=== PATIENT | male | born 1955 | race African-American/Black ===

== ENCOUNTER 2021-09-13 11:08 | Inpatient (IN) ==
[2021-09-13] MEDS ORDERED: HYDROmorphone 1 MG/1 ML SYRINGE IV STA ×3 (13:09→14:42)
[2021-09-13] MEDS ORDERED: SODIUM CHLORIDE 0.9% 1,000 ML IV STA (13:09)
[2021-09-13] MEDS ORDERED: ONDANSETRON 4 MG/2 ML VIAL IV STA (13:09)
[2021-09-13 13:18] LABS: Basophils % 0.4 % (0.0-0.8); Eosinophils % 0.2 % (0.00-10.9); Hemoglobin 10.9 GM/DL (14.0-18.0); Immature Granulocytes % 1.9 %; Immature Granulocytes Absolute 0.09 #; Lymphocytes # 0.9 10*3/uL (1.4-4.0); Lymphocytes % 19.8 % (21.2-54.2); Mean Corpuscular HGB Conc 31.1 GM/DL (32-36); Mean Corpuscular Volume 82.9 FL (87-102); Mean Platelet Volume 8.9 FL (9.6-12.0); Monocytes # 0.4 10*3/uL (0.11-0.8); Monocytes % 7.5 % (1.7-12.7); Neutrophils % 70.2 % (38.7-73.9); Platelet Count 409 T/CUMM (130-400); Red Blood Count 4.22 MC/CUMM (3.8-5.5); Red Cell Distribution Width 18.7 % (9.3-17.3); White Blood Count 4.7 T/CUMM (4-12)
[2021-09-13 13:31] LABS: Alanine Aminotransferase 13 U/L (16-61); Alkaline Phosphatase 279 U/L (45-117); Aspartate Amino Transferase 17 U/L (0-37); Bilirubin,Total < 0.39 MG/DL (0.20-1.00); Blood Urea Nitrogen 13 MG/DL (7-18); Calcium 9.9 MG/DL (8.5-10.1); Carbon Dioxide 25 MMOL/L (21-32); Chloride 109 MMOL/L (98-107); Glucose 140 MG/DL (74-106); Osmolality,Calculated 282.3 MOS/KG (273-304); Sodium 141 MMOL/L (136-145); Total Protein 8.5 G/DL (6.4-8.2)
[2021-09-13 13:46] LABS: Glucose,Urine (UA) 250 mg/dL (Negative); Mucus,Urine Occasional /LPF (Occasional); Protein,Urine 30 mg/dL (Negative); RBC,Urine 9 /HPF (0-4); Urine Appearance Clear (Clear); Urine Color Yellow (Yellow); Urine Specific Gravity 1.025 (1.001-1.035)
[2021-09-13 13:47] LABS: Bilirubin,Urine Negative (Negative); Blood, Urine Moderate mg/dL (Negative); Ketones,Urine Negative (Negative); Nitrite,Urine Negative (Negative); Urine Urobilinogen 0.2 eU/dL (<2.0)
[2021-09-13] MEDS ORDERED: cefTRIAXone 1,000 MG in SODIUM CHLORIDE 0.9% 100 ML IV STA (15:48)
[2021-09-13] MEDS ORDERED: ZALEPLON 5 MG CAPSULE PO PRN (16:49)
[2021-09-13] MEDS ORDERED: hydrALAZINE 20 MG/1 ML VIAL IV PRN (16:49)
[2021-09-13] MEDS ORDERED: ACETAMINOPHEN 325 MG TABLET PO PRN (16:49)
[2021-09-13] MEDS ORDERED: GLUCAGON 1 MG VIAL IM PRN (16:49)
[2021-09-13] MEDS ORDERED: DEXTROSE 10% 250 ML BAG IV PRN (16:58)
[2021-09-13] MEDS: HYDROmorphone 1 MG/1 ML SYRINGE IV PRN ×2 (17:00→23:27)
[2021-09-13 17:21] LABS: Thyroid Stimulating Hormone 0.577 uIU/ml (0.358-3.74)
[2021-09-13] MEDS: fentaNYL 12 MCG/HR PATCH TRANSDERM SCH (18:00)
[2021-09-13] MEDS: INSULIN LISPRO 100 UNIT/ML SUBCUT SCH (21:30)
[2021-09-13] MEDS: ENOXAPARIN 40 MG/0.4 ML SYRINGE SUBCUT SCH (21:31)
[2021-09-14 05:02] LABS: Basophils % 0.2 % (0.0-0.8); Eosinophils % 0.1 % (0.00-10.9); Hematocrit 32.2 VOL% (42.0-52.0); Immature Granulocytes % 0.7 %; Immature Granulocytes Absolute 0.06 #; Lymphocytes # 0.9 10*3/uL (1.4-4.0); Lymphocytes % 9.8 % (21.2-54.2); Mean Corpuscular HGB Conc 31.1 GM/DL (32-36); Mean Corpuscular Volume 82.8 FL (87-102); Mean Platelet Volume 8.6 FL (9.6-12.0); Monocytes # 0.6 10*3/uL (0.11-0.8); Monocytes % 7.1 % (1.7-12.7); Neutrophils % 82.1 % (38.7-73.9); Platelet Count 339 T/CUMM (130-400); Red Blood Count 3.89 MC/CUMM (3.8-5.5); Red Cell Distribution Width 18.5 % (9.3-17.3); White Blood Count 9.1 T/CUMM (4-12)
[2021-09-14 05:30] LABS: Alanine Aminotransferase 12 U/L (16-61); Albumin 3.3 G/DL (3.4-5.0); Alkaline Phosphatase 292 U/L (45-117); Aspartate Amino Transferase 26 U/L (0-37); Bilirubin,Total < 0.39 MG/DL (0.20-1.00); Blood Urea Nitrogen 12 MG/DL (7-18); Calcium 9.5 MG/DL (8.5-10.1); Carbon Dioxide 26 MMOL/L (21-32); Chloride 107 MMOL/L (98-107); Glucose 126 MG/DL (74-106); Osmolality,Calculated 278.5 MOS/KG (273-304); Potassium 3.8 MMOL/L (3.5-5.1); Sodium 139 MMOL/L (136-145); Total Protein 7.4 G/DL (6.4-8.2)
[2021-09-14] MEDS: INSULIN LISPRO 100 UNIT/ML SUBCUT SCH ×4 (07:30→22:07)
[2021-09-14] MEDS ORDERED: DEXAMETHASONE 10 MG/1 ML VIAL IV SCH (09:00)
[2021-09-14] MEDS: PANTOPRAZOLE 40 MG TABLET PO SCH (09:10)
[2021-09-14] MEDS: POLYETHYLENE GLYCOL POWDER 17 GM PACK PO SCH (09:10)
[2021-09-14] MEDS: BISACODYL 5 MG TABLET PO SCH (09:10)
[2021-09-14] MEDS: DEXAMETHASONE INJ 40 MG in SODIUM CHLORIDE 0.9% 50 ML IV SCH (12:45)
[2021-09-14] MEDS: cefTRIAXone 2,000 MG in SODIUM CHLORIDE 0.9% 100 ML IV SCH (16:15)
[2021-09-14] MEDS: ENOXAPARIN 40 MG/0.4 ML SYRINGE SUBCUT SCH (20:42)
[2021-09-15 05:22] LABS: Basophils % 0.2 % (0.0-0.8); Eosinophils # 0.2 10*3/uL (0.0-0.87); Eosinophils % 2.5 % (0.00-10.9); Hematocrit 33.5 VOL% (42.0-52.0); Hemoglobin 10.7 GM/DL (14.0-18.0); Immature Granulocytes % 0.6 %; Immature Granulocytes Absolute 0.05 #; Lymphocytes # 1.8 10*3/uL (1.4-4.0); Lymphocytes % 20.6 % (21.2-54.2); Mean Corpuscular HGB Conc 31.9 GM/DL (32-36); Mean Corpuscular Volume 81.1 FL (87-102); Mean Platelet Volume 8.5 FL (9.6-12.0); Monocytes # 0.8 10*3/uL (0.11-0.8); Monocytes % 9.5 % (1.7-12.7); Neutrophils % 66.6 % (38.7-73.9); Platelet Count 344 T/CUMM (130-400); Red Blood Count 4.13 MC/CUMM (3.8-5.5); Red Cell Distribution Width 18.2 % (9.3-17.3); White Blood Count 8.8 T/CUMM (4-12)
[2021-09-15 05:44] LABS: Bilirubin,Total 0.4 MG/DL (0.20-1.00); Osmolality,Calculated 280.4 MOS/KG (273-304); Potassium 3.7 MMOL/L (3.5-5.1); Total Protein 7.3 G/DL (6.4-8.2)
[2021-09-15] MEDS: INSULIN LISPRO 100 UNIT/ML SUBCUT SCH ×4 (07:28→21:29)
[2021-09-15] MEDS ORDERED: ZOLEDRONIC ACID 4 MG/100 ML PREMIX IV ONE (08:38)
[2021-09-15 09:06] LABS: Folate 13.43 NG/ML (5.38-24.0)
[2021-09-15 09:18] LABS: Total Protein 7.2 G/DL (6.4-8.2)
[2021-09-15 09:23] LABS: % Iron Saturation 10.7 % (18-50)
[2021-09-15] MEDS: PANTOPRAZOLE 40 MG TABLET PO SCH (11:30)
[2021-09-15] MEDS: POLYETHYLENE GLYCOL POWDER 17 GM PACK PO SCH (11:30)
[2021-09-15] MEDS: BISACODYL 5 MG TABLET PO SCH (11:30)
[2021-09-15] MEDS: DEXAMETHASONE INJ 40 MG in SODIUM CHLORIDE 0.9% 50 ML IV SCH (12:10)
[2021-09-15] MEDS: cefTRIAXone 2,000 MG in SODIUM CHLORIDE 0.9% 100 ML IV SCH (16:34)
[2021-09-15] MEDS: ENOXAPARIN 40 MG/0.4 ML SYRINGE SUBCUT SCH (21:28)
[2021-09-16] MEDS: HYDROmorphone 1 MG/1 ML SYRINGE IV PRN ×2 (03:31→06:24)
[2021-09-16] MEDS: ONDANSETRON 4 MG/2 ML VIAL IV PRN ×2 (03:32→06:50)
[2021-09-16 06:24] LABS: Basophils % 0.2 % (0.0-0.8); Hematocrit 32.8 VOL% (42.0-52.0); Hemoglobin 10.5 GM/DL (14.0-18.0); Immature Granulocytes % 0.5 %; Immature Granulocytes Absolute 0.04 #; Lymphocytes # 0.8 10*3/uL (1.4-4.0); Lymphocytes % 9.7 % (21.2-54.2); Mean Platelet Volume 9.2 FL (9.6-12.0); Monocytes # 0.6 10*3/uL (0.11-0.8); Monocytes % 7.1 % (1.7-12.7); Neutrophils % 82.5 % (38.7-73.9); Platelet Count 354 T/CUMM (130-400); Red Cell Distribution Width 18.2 % (9.3-17.3); White Blood Count 8.3 T/CUMM (4-12)
[2021-09-16 06:43] LABS: Immunoglobulin A (Chem) 282 MG/DL (70-400); Immunoglobulin G (Chem) 1080 MG/DL (700-1600); Immunoglobulin M (Chem) 50 MG/DL (40-230); Total Protein (Chem) 7.2 G/DL (6.4-8.3)
[2021-09-16 06:46] LABS: Albumin 2.8 G/DL (3.4-5.0); Bilirubin,Total 0.5 MG/DL (0.20-1.00); Calcium 8.6 MG/DL (8.5-10.1); Osmolality,Calculated 279.5 MOS/KG (273-304); Potassium 3.6 MMOL/L (3.5-5.1); Total Protein 7.1 G/DL (6.4-8.2)
[2021-09-16 08:17] LABS: Albumin (SPE) 4.2 G/DL (3.2-5.3); Albumin (SPE) Rel % 58.5 %; Alpha 1 (SPE) 0.2 G/DL (0.1-0.4); Alpha 2 (SPE) Rel % 14.1 %; Beta (SPE) 0.9 G/DL (0.5-1.1); Gamma (SPE) 0.9 G/DL (0.7-1.7); Gamma (SPE) Rel % 12.4 %
[2021-09-16] MEDS ORDERED: SODIUM CHLORIDE 0.9% 500 ML IV ONE (08:35)
[2021-09-16] MEDS: BISACODYL 5 MG TABLET PO SCH (08:42)
[2021-09-16] MEDS: PANTOPRAZOLE 40 MG TABLET PO SCH (08:42)
[2021-09-16] MEDS: POLYETHYLENE GLYCOL POWDER 17 GM PACK PO SCH ×2 (08:43→21:11)
[2021-09-16] MEDS: fentaNYL 12 MCG/HR PATCH TRANSDERM SCH (08:43)
[2021-09-16] MEDS: DEXAMETHASONE INJ 40 MG in SODIUM CHLORIDE 0.9% 50 ML IV SCH (08:46)
[2021-09-16] MEDS ORDERED: CHOLECALCIFEROL 5,000 UNIT TABLET PO SCH (09:00)
[2021-09-16] MEDS: INSULIN LISPRO 100 UNIT/ML SUBCUT SCH ×4 (10:37→20:19)
[2021-09-16] MEDS: LACTATED RINGERS 1,000 ML IV SCH (16:01)
[2021-09-16] MEDS: CEFEPIME 1,000 MG in SODIUM CHLORIDE 0.9% 100 ML IV SCH ×2 (16:01→22:13)
[2021-09-16 16:34] LABS: Kappa Free Light Chain 1.35 mg/dL; Lambda Free Light Chain 1.52 mg/dL
[2021-09-16] MEDS: SIMETHICONE CHEW 125 MG TABLET PO SCH (21:07)
[2021-09-16] MEDS: CHOLECALCIFEROL 5,000 UNIT TABLET PO SCH (21:08)
[2021-09-16] MEDS: ATORVASTATIN 20 MG TABLET PO SCH (21:08)
[2021-09-16] MEDS: DOCUSATE/SENNA 50-8.6 MG TABLET PO SCH (21:08)
[2021-09-16] MEDS: CYANOCOBALAMIN 500 MCG TABLET PO SCH (21:08)
[2021-09-16] MEDS: ENOXAPARIN 40 MG/0.4 ML SYRINGE SUBCUT SCH (21:12)
[2021-09-17] MEDS: LACTATED RINGERS 1,000 ML IV SCH ×3 (00:09→19:55)
[2021-09-17] MEDS: CEFEPIME 1,000 MG in SODIUM CHLORIDE 0.9% 100 ML IV SCH ×4 (03:46→22:13)
[2021-09-17 05:47] LABS: Basophils % 0.5 % (0.0-0.8); Hematocrit 28.6 VOL% (42.0-52.0); Hemoglobin 9.1 GM/DL (14.0-18.0); Immature Granulocytes % 0.7 %; Immature Granulocytes Absolute 0.03 #; Lymphocytes # 0.6 10*3/uL (1.4-4.0); Lymphocytes % 13.1 % (21.2-54.2); Mean Corpuscular HGB Conc 31.8 GM/DL (32-36); Mean Corpuscular Volume 80.3 FL (87-102); Mean Platelet Volume 9.5 FL (9.6-12.0); Monocytes # 0.4 10*3/uL (0.11-0.8); Monocytes % 8.8 % (1.7-12.7); Neutrophils % 76.9 % (38.7-73.9); Platelet Count 304 T/CUMM (130-400); Red Blood Count 3.56 MC/CUMM (3.8-5.5); Red Cell Distribution Width 18.2 % (9.3-17.3); White Blood Count 4.4 T/CUMM (4-12)
[2021-09-17 06:09] LABS: Alanine Aminotransferase 14 U/L (16-61); Albumin 2.4 G/DL (3.4-5.0); Alkaline Phosphatase 217 U/L (45-117); Aspartate Amino Transferase 22 U/L (0-37); Bilirubin,Total < 0.39 MG/DL (0.20-1.00); Blood Urea Nitrogen 19 MG/DL (7-18); Calcium 7.6 MG/DL (8.5-10.1); Carbon Dioxide 24 MMOL/L (21-32); Chloride 104 MMOL/L (98-107); Glucose 117 MG/DL (74-106); Osmolality,Calculated 272.1 MOS/KG (273-304); Potassium 3.6 MMOL/L (3.5-5.1); Sodium 135 MMOL/L (136-145); Total Protein 6.5 G/DL (6.4-8.2)
[2021-09-17] MEDS: INSULIN LISPRO 100 UNIT/ML SUBCUT SCH ×4 (08:12→22:07)
[2021-09-17] MEDS: HYDROmorphone 1 MG/1 ML SYRINGE IV PRN (09:42)
[2021-09-17] MEDS: DEXAMETHASONE INJ 40 MG in SODIUM CHLORIDE 0.9% 50 ML IV SCH (09:43)
[2021-09-17] MEDS: SIMETHICONE CHEW 125 MG TABLET PO SCH ×2 (09:44→22:09)
[2021-09-17] MEDS: POLYETHYLENE GLYCOL POWDER 17 GM PACK PO SCH ×2 (09:44→22:10)
[2021-09-17] MEDS: CYANOCOBALAMIN 500 MCG TABLET PO SCH ×2 (09:45→22:10)
[2021-09-17] MEDS: BACILLUS COAGULANS CAPLET PO SCH (09:45)
[2021-09-17] MEDS: DOCUSATE/SENNA 50-8.6 MG TABLET PO SCH ×2 (09:45→22:10)
[2021-09-17] MEDS: PANTOPRAZOLE 40 MG TABLET PO SCH (09:45)
[2021-09-17] MEDS: CHOLECALCIFEROL 5,000 UNIT TABLET PO SCH ×2 (09:45→22:10)
[2021-09-17] MEDS: ENOXAPARIN 40 MG/0.4 ML SYRINGE SUBCUT SCH (22:08)
[2021-09-17] MEDS: ATORVASTATIN 20 MG TABLET PO SCH (22:08)
[2021-09-18] MEDS: CEFEPIME 1,000 MG in SODIUM CHLORIDE 0.9% 100 ML IV SCH (03:27)
[2021-09-18] MEDS: LACTATED RINGERS 1,000 ML IV SCH ×3 (03:27→21:17)
[2021-09-18] MEDS: INSULIN LISPRO 100 UNIT/ML SUBCUT SCH ×4 (07:43→21:19)
[2021-09-18] MEDS: POLYETHYLENE GLYCOL POWDER 17 GM PACK PO SCH ×2 (09:02→21:21)
[2021-09-18] MEDS: BACILLUS COAGULANS CAPLET PO SCH (09:03)
[2021-09-18] MEDS: DOCUSATE/SENNA 50-8.6 MG TABLET PO SCH ×2 (09:03→21:22)
[2021-09-18] MEDS: CYANOCOBALAMIN 500 MCG TABLET PO SCH ×2 (09:03→21:22)
[2021-09-18] MEDS: FERROUS SULFATE 325 MG TABLET PO SCH (09:04)
[2021-09-18] MEDS: CHOLECALCIFEROL 5,000 UNIT TABLET PO SCH ×2 (09:04→21:23)
[2021-09-18] MEDS: PANTOPRAZOLE 40 MG TABLET PO SCH (09:05)
[2021-09-18] MEDS: SIMETHICONE CHEW 125 MG TABLET PO SCH ×2 (09:06→21:22)
[2021-09-18] MEDS: DEXAMETHASONE INJ 40 MG in SODIUM CHLORIDE 0.9% 50 ML IV SCH (09:07)
[2021-09-18] MEDS: cefTRIAXone 2,000 MG in SODIUM CHLORIDE 0.9% 100 ML IV SCH (11:23)
[2021-09-18] MEDS: HYDROmorphone 1 MG/1 ML SYRINGE IV PRN (19:12)
[2021-09-18] MEDS: ATORVASTATIN 20 MG TABLET PO SCH (21:20)
[2021-09-18] MEDS: ENOXAPARIN 40 MG/0.4 ML SYRINGE SUBCUT SCH (21:21)
[2021-09-19 05:05] LABS: Basophils % 0.2 % (0.0-0.8); Eosinophils % 0.6 % (0.00-10.9); Immature Granulocytes % 0.5 %; Immature Granulocytes Absolute 0.03 #; Lymphocytes # 1.2 10*3/uL (1.4-4.0); Mean Corpuscular Volume 81.9 FL (87-102); Mean Platelet Volume 8.9 FL (9.6-12.0); Monocytes # 0.5 10*3/uL (0.11-0.8); Monocytes % 8.4 % (1.7-12.7); Neutrophils % 71.3 % (38.7-73.9); Platelet Count 305 T/CUMM (130-400); Red Blood Count 3.54 MC/CUMM (3.8-5.5); White Blood Count 6.2 T/CUMM (4-12)
[2021-09-19 05:37] LABS: Alanine Aminotransferase 31 U/L (16-61); Albumin 2.3 G/DL (3.4-5.0); Alkaline Phosphatase 175 U/L (45-117); Aspartate Amino Transferase 28 U/L (0-37); Bilirubin,Total < 0.39 MG/DL (0.20-1.00); Blood Urea Nitrogen 20 MG/DL (7-18); Calcium 7.3 MG/DL (8.5-10.1); Carbon Dioxide 27 MMOL/L (21-32); Chloride 110 MMOL/L (98-107); Glucose 104 MG/DL (74-106); Osmolality,Calculated 281.4 MOS/KG (273-304); Potassium 4.6 MMOL/L (3.5-5.1); Sodium 140 MMOL/L (136-145); Total Protein 6.5 G/DL (6.4-8.2)
[2021-09-19] MEDS ORDERED: DEXAMETHASONE 10 MG/1 ML VIAL IV ONE ×2 (08:13→15:30)
[2021-09-19] MEDS: INSULIN LISPRO 100 UNIT/ML SUBCUT SCH ×4 (09:53→22:13)
[2021-09-19] MEDS: BACILLUS COAGULANS CAPLET PO SCH (09:54)
[2021-09-19] MEDS: fentaNYL 12 MCG/HR PATCH TRANSDERM SCH (09:54)
[2021-09-19] MEDS: POLYETHYLENE GLYCOL POWDER 17 GM PACK PO SCH ×2 (09:57→22:12)
[2021-09-19] MEDS: CYANOCOBALAMIN 500 MCG TABLET PO SCH ×2 (09:58→22:14)
[2021-09-19] MEDS: PANTOPRAZOLE 40 MG TABLET PO SCH (09:58)
[2021-09-19] MEDS: DOCUSATE/SENNA 50-8.6 MG TABLET PO SCH ×2 (09:58→22:14)
[2021-09-19] MEDS: SIMETHICONE CHEW 125 MG TABLET PO SCH ×2 (09:58→22:18)
[2021-09-19] MEDS: cefTRIAXone 2,000 MG in SODIUM CHLORIDE 0.9% 100 ML IV SCH (09:59)
[2021-09-19] MEDS: CHOLECALCIFEROL 5,000 UNIT TABLET PO SCH ×2 (10:01→22:14)
[2021-09-19] MEDS: DEXAMETHASONE INJ 40 MG in SODIUM CHLORIDE 0.9% 50 ML IV SCH (10:10)
[2021-09-19] MEDS ORDERED: BISACODYL 5 MG TABLET PO ONE (12:08)
[2021-09-19] MEDS ORDERED: SODIUM CHLORIDE 0.9% IV ONE ×2 (12:30→15:00)
[2021-09-19] MEDS ORDERED: DOCETAXEL IV ONE ×2 (12:30→15:00)
[2021-09-19] MEDS: LACTATED RINGERS 1,000 ML IV SCH ×2 (14:49→15:42)
[2021-09-19] MEDS ORDERED: diphenhydrAMINE CAP 50 MG CAPSULE PO ONE (14:50)
[2021-09-19] MEDS ORDERED: FAMOTIDINE 20 MG TABLET PO ONE (14:51)
[2021-09-19] MEDS: GRANISETRON 1 MG/1 ML VIAL IV SCH (15:33)
[2021-09-19] MEDS: HYDROmorphone 1 MG/1 ML SYRINGE IV PRN (15:37)
[2021-09-19] MEDS: LACTULOSE 20 GM/30 ML UDCUP PO SCH ×2 (17:01→22:13)
[2021-09-19] MEDS: ENOXAPARIN 40 MG/0.4 ML SYRINGE SUBCUT SCH (22:13)
[2021-09-19] MEDS: ATORVASTATIN 20 MG TABLET PO SCH (22:14)
[2021-09-20] MEDS: LACTULOSE 20 GM/30 ML UDCUP PO SCH ×2 (01:24→06:22)
[2021-09-20] MEDS: LACTATED RINGERS 1,000 ML IV SCH ×3 (06:21→22:30)
[2021-09-20 07:24] LABS: Eosinophils % 0.5 % (0.00-10.9); Hematocrit 30.7 VOL% (42.0-52.0); Hemoglobin 9.7 GM/DL (14.0-18.0); Immature Granulocytes % 0.5 %; Immature Granulocytes Absolute 0.02 #; Lymphocytes # 0.6 10*3/uL (1.4-4.0); Lymphocytes % 14.8 % (21.2-54.2); Mean Corpuscular HGB Conc 31.6 GM/DL (32-36); Mean Corpuscular Volume 81.9 FL (87-102); Mean Platelet Volume 9.5 FL (9.6-12.0); Monocytes # 0.3 10*3/uL (0.11-0.8); Monocytes % 6.4 % (1.7-12.7); Neutrophils % 77.8 % (38.7-73.9); Platelet Count 369 T/CUMM (130-400); Red Blood Count 3.75 MC/CUMM (3.8-5.5); Red Cell Distribution Width 18.2 % (9.3-17.3); White Blood Count 3.9 T/CUMM (4-12)
[2021-09-20 07:33] LABS: Calcium 7.5 MG/DL (8.5-10.1); Osmolality,Calculated 284.1 MOS/KG (273-304)
[2021-09-20] MEDS: INSULIN LISPRO 100 UNIT/ML SUBCUT SCH ×4 (07:42→21:21)
[2021-09-20] MEDS: FERROUS SULFATE 325 MG TABLET PO SCH (08:10)
[2021-09-20] MEDS: BACILLUS COAGULANS CAPLET PO SCH (08:10)
[2021-09-20] MEDS: POLYETHYLENE GLYCOL POWDER 17 GM PACK PO SCH ×2 (08:11→21:19)
[2021-09-20] MEDS: SIMETHICONE CHEW 125 MG TABLET PO SCH ×2 (08:11→21:17)
[2021-09-20] MEDS: CHOLECALCIFEROL 5,000 UNIT TABLET PO SCH ×2 (08:11→21:17)
[2021-09-20] MEDS: CYANOCOBALAMIN 500 MCG TABLET PO SCH ×2 (08:11→21:17)
[2021-09-20] MEDS: PANTOPRAZOLE 40 MG TABLET PO SCH (08:11)
[2021-09-20] MEDS: GRANISETRON 1 MG/1 ML VIAL IV SCH (08:11)
[2021-09-20] MEDS: DOCUSATE/SENNA 50-8.6 MG TABLET PO SCH ×2 (08:12→21:22)
[2021-09-20] MEDS: DEXAMETHASONE INJ 40 MG in SODIUM CHLORIDE 0.9% 50 ML IV SCH (09:02)
[2021-09-20] MEDS: cefTRIAXone 2,000 MG in SODIUM CHLORIDE 0.9% 100 ML IV SCH (09:02)
[2021-09-20] MEDS: ATORVASTATIN 20 MG TABLET PO SCH (21:17)
[2021-09-20] MEDS: CIPROFLOXACIN 500 MG TABLET PO SCH (21:17)
[2021-09-20] MEDS: ENOXAPARIN 40 MG/0.4 ML SYRINGE SUBCUT SCH (21:18)
[2021-09-21 05:18] LABS: Basophils % 0.3 % (0.0-0.8); Hematocrit 29.6 VOL% (42.0-52.0); Hemoglobin 9.4 GM/DL (14.0-18.0); Immature Granulocytes Absolute 0.03 #; Lymphocytes # 0.6 10*3/uL (1.4-4.0); Lymphocytes % 18.2 % (21.2-54.2); Mean Corpuscular HGB Conc 31.8 GM/DL (32-36); Mean Corpuscular Volume 81.3 FL (87-102); Mean Platelet Volume 9.5 FL (9.6-12.0); Monocytes # 0.2 10*3/uL (0.11-0.8); Monocytes % 6.8 % (1.7-12.7); Neutrophils % 72.7 % (38.7-73.9); Platelet Count 343 T/CUMM (130-400); Red Blood Count 3.64 MC/CUMM (3.8-5.5); Red Cell Distribution Width 17.9 % (9.3-17.3); White Blood Count 3.1 T/CUMM (4-12)
[2021-09-21 05:43] LABS: Calcium 7.9 MG/DL (8.5-10.1); Osmolality,Calculated 284.1 MOS/KG (273-304); Potassium 4.4 MMOL/L (3.5-5.1)
[2021-09-21] MEDS: LACTATED RINGERS 1,000 ML IV SCH ×2 (06:19→16:28)
[2021-09-21] MEDS: INSULIN LISPRO 100 UNIT/ML SUBCUT SCH ×4 (07:52→21:59)
[2021-09-21] MEDS: POLYETHYLENE GLYCOL POWDER 17 GM PACK PO SCH ×2 (08:40→21:58)
[2021-09-21] MEDS: DOCUSATE/SENNA 50-8.6 MG TABLET PO SCH ×2 (08:40→21:58)
[2021-09-21] MEDS: CIPROFLOXACIN 500 MG TABLET PO SCH ×2 (08:41→21:57)
[2021-09-21] MEDS: BACILLUS COAGULANS CAPLET PO SCH (08:41)
[2021-09-21] MEDS: PANTOPRAZOLE 40 MG TABLET PO SCH (08:41)
[2021-09-21] MEDS: SIMETHICONE CHEW 125 MG TABLET PO SCH ×2 (08:41→21:57)
[2021-09-21] MEDS: CYANOCOBALAMIN 500 MCG TABLET PO SCH ×2 (08:41→21:57)
[2021-09-21] MEDS: CHOLECALCIFEROL 5,000 UNIT TABLET PO SCH ×2 (08:41→21:57)
[2021-09-21] MEDS: GRANISETRON 1 MG/1 ML VIAL IV SCH (08:41)
[2021-09-21] MEDS: DEXAMETHASONE INJ 40 MG in SODIUM CHLORIDE 0.9% 50 ML IV SCH (08:46)
[2021-09-21] MEDS ORDERED: HYDROmorphone 1 MG/1 ML SYRINGE IV PRN (10:27)
[2021-09-21] MEDS: ATORVASTATIN 20 MG TABLET PO SCH (21:58)
[2021-09-21] MEDS: ENOXAPARIN 40 MG/0.4 ML SYRINGE SUBCUT SCH (21:58)
[2021-09-22 05:48] LABS: Basophils % 0.4 % (0.0-0.8); Eosinophils % 0.8 % (0.00-10.9); Hematocrit 29.7 VOL% (42.0-52.0); Hemoglobin 9.4 GM/DL (14.0-18.0); Immature Granulocytes % 0.4 %; Immature Granulocytes Absolute 0.01 #; Lymphocytes # 0.5 10*3/uL (1.4-4.0); Lymphocytes % 20.8 % (21.2-54.2); Mean Corpuscular HGB Conc 31.6 GM/DL (32-36); Mean Corpuscular Volume 81.4 FL (87-102); Mean Platelet Volume 9.3 FL (9.6-12.0); Monocytes # 0.1 10*3/uL (0.11-0.8); Monocytes % 4.4 % (1.7-12.7); Neutrophils % 73.2 % (38.7-73.9); Platelet Count 337 T/CUMM (130-400); Red Blood Count 3.65 MC/CUMM (3.8-5.5); Red Cell Distribution Width 17.8 % (9.3-17.3); White Blood Count 2.5 T/CUMM (4-12)
[2021-09-22 06:14] LABS: Calcium 8.1 MG/DL (8.5-10.1); Osmolality,Calculated 280.5 MOS/KG (273-304); Potassium 4.3 MMOL/L (3.5-5.1)
[2021-09-22] MEDS: INSULIN LISPRO 100 UNIT/ML SUBCUT SCH ×4 (07:37→21:54)
[2021-09-22] MEDS: LACTATED RINGERS 1,000 ML IV SCH ×3 (08:11→23:30)
[2021-09-22] MEDS: POLYETHYLENE GLYCOL POWDER 17 GM PACK PO SCH ×2 (08:47→22:01)
[2021-09-22] MEDS: DOCUSATE/SENNA 50-8.6 MG TABLET PO SCH ×2 (08:49→21:58)
[2021-09-22] MEDS: CHOLECALCIFEROL 5,000 UNIT TABLET PO SCH ×2 (08:49→21:55)
[2021-09-22] MEDS: BACILLUS COAGULANS CAPLET PO SCH (08:49)
[2021-09-22] MEDS: FERROUS SULFATE 325 MG TABLET PO SCH (08:50)
[2021-09-22] MEDS: PANTOPRAZOLE 40 MG TABLET PO SCH (08:51)
[2021-09-22] MEDS: CYANOCOBALAMIN 500 MCG TABLET PO SCH ×2 (08:51→21:55)
[2021-09-22] MEDS: CIPROFLOXACIN 500 MG TABLET PO SCH ×2 (08:51→21:58)
[2021-09-22] MEDS: SIMETHICONE CHEW 125 MG TABLET PO SCH ×2 (08:51→21:55)
[2021-09-22] MEDS: GRANISETRON 1 MG/1 ML VIAL IV SCH (08:52)
[2021-09-22] MEDS: DEXAMETHASONE INJ 40 MG in SODIUM CHLORIDE 0.9% 50 ML IV SCH (15:22)
[2021-09-22] MEDS: BACLOFEN 10 MG TABLET PO SCH ×2 (15:24→21:55)
[2021-09-22] MEDS ORDERED: BISACODYL 5 MG TABLET PO ONE (16:03)
[2021-09-22] MEDS: ATORVASTATIN 20 MG TABLET PO SCH (21:56)
[2021-09-22] MEDS: ENOXAPARIN 40 MG/0.4 ML SYRINGE SUBCUT SCH (21:56)
[2021-09-23 05:07] LABS: Basophils % 0.3 % (0.0-0.8); Hematocrit 32.2 VOL% (42.0-52.0); Immature Granulocytes % 0.7 %; Immature Granulocytes Absolute 0.02 #; Lymphocytes # 0.3 10*3/uL (1.4-4.0); Lymphocytes % 11.4 % (21.2-54.2); Mean Corpuscular HGB Conc 31.1 GM/DL (32-36); Mean Corpuscular Volume 81.1 FL (87-102); Mean Platelet Volume 9.2 FL (9.6-12.0); Monocytes # 0.2 10*3/uL (0.11-0.8); Monocytes % 5.5 % (1.7-12.7); Neutrophils % 82.1 % (38.7-73.9); Platelet Count 359 T/CUMM (130-400); Red Blood Count 3.97 MC/CUMM (3.8-5.5); Red Cell Distribution Width 17.7 % (9.3-17.3); White Blood Count 2.9 T/CUMM (4-12)
[2021-09-23 05:20] LABS: Osmolality,Calculated 280.4 MOS/KG (273-304); Potassium 4.6 MMOL/L (3.5-5.1)
[2021-09-23] MEDS: INSULIN LISPRO 100 UNIT/ML SUBCUT SCH ×4 (08:03→21:24)
[2021-09-23] MEDS: POLYETHYLENE GLYCOL POWDER 17 GM PACK PO SCH ×2 (09:14→20:41)
[2021-09-23] MEDS: GRANISETRON 1 MG/1 ML VIAL IV SCH (09:16)
[2021-09-23] MEDS: CIPROFLOXACIN 500 MG TABLET PO SCH ×2 (09:17→21:24)
[2021-09-23] MEDS: SIMETHICONE CHEW 125 MG TABLET PO SCH ×2 (09:17→21:24)
[2021-09-23] MEDS: DOCUSATE/SENNA 50-8.6 MG TABLET PO SCH ×2 (09:17→21:24)
[2021-09-23] MEDS: DEXAMETHASONE INJ 40 MG in SODIUM CHLORIDE 0.9% 50 ML IV SCH (09:18)
[2021-09-23] MEDS: BACLOFEN 10 MG TABLET PO SCH ×3 (09:18→21:23)
[2021-09-23] MEDS: CYANOCOBALAMIN 500 MCG TABLET PO SCH ×2 (09:18→21:24)
[2021-09-23] MEDS: BACILLUS COAGULANS CAPLET PO SCH (09:18)
[2021-09-23] MEDS: PANTOPRAZOLE 40 MG TABLET PO SCH (09:18)
[2021-09-23] MEDS: CHOLECALCIFEROL 5,000 UNIT TABLET PO SCH ×2 (09:18→21:24)
[2021-09-23] MEDS: LACTATED RINGERS 1,000 ML IV SCH (15:44)
[2021-09-23] MEDS: ATORVASTATIN 20 MG TABLET PO SCH (21:24)
[2021-09-23] MEDS: ENOXAPARIN 40 MG/0.4 ML SYRINGE SUBCUT SCH (21:25)
[2021-09-24] MEDS: LACTATED RINGERS 1,000 ML IV SCH (03:55)
[2021-09-24 04:58] LABS: Basophils % 0.4 % (0.0-0.8); Eosinophils % 0.4 % (0.00-10.9); Hematocrit 30.9 VOL% (42.0-52.0); Hemoglobin 9.7 GM/DL (14.0-18.0); Immature Granulocytes % 1.1 %; Immature Granulocytes Absolute 0.03 #; Lymphocytes # 0.4 10*3/uL (1.4-4.0); Lymphocytes % 15.4 % (21.2-54.2); Mean Corpuscular HGB Conc 31.4 GM/DL (32-36); Mean Corpuscular Volume 80.9 FL (87-102); Mean Platelet Volume 9.4 FL (9.6-12.0); Monocytes # 0.1 10*3/uL (0.11-0.8); Monocytes % 4.1 % (1.7-12.7); Neutrophils % 78.6 % (38.7-73.9); Platelet Count 375 T/CUMM (130-400); Red Blood Count 3.82 MC/CUMM (3.8-5.5); Red Cell Distribution Width 17.6 % (9.3-17.3); White Blood Count 2.7 T/CUMM (4-12)
[2021-09-24 05:18] LABS: Calcium 8.2 MG/DL (8.5-10.1); Osmolality,Calculated 281.4 MOS/KG (273-304); Potassium 4.3 MMOL/L (3.5-5.1)
[2021-09-24] MEDS: INSULIN LISPRO 100 UNIT/ML SUBCUT SCH ×4 (07:26→21:13)
[2021-09-24] MEDS: BACLOFEN 10 MG TABLET PO SCH ×3 (09:48→21:13)
[2021-09-24] MEDS: CIPROFLOXACIN 500 MG TABLET PO SCH ×2 (09:49→21:13)
[2021-09-24] MEDS: BACILLUS COAGULANS CAPLET PO SCH (09:49)
[2021-09-24] MEDS: POLYETHYLENE GLYCOL POWDER 17 GM PACK PO SCH ×2 (09:49→21:34)
[2021-09-24] MEDS: CHOLECALCIFEROL 5,000 UNIT TABLET PO SCH ×2 (09:49→21:13)
[2021-09-24] MEDS: SIMETHICONE CHEW 125 MG TABLET PO SCH ×2 (09:49→21:13)
[2021-09-24] MEDS: CYANOCOBALAMIN 500 MCG TABLET PO SCH ×2 (09:49→21:13)
[2021-09-24] MEDS: DEXAMETHASONE INJ 40 MG in SODIUM CHLORIDE 0.9% 50 ML IV SCH (09:49)
[2021-09-24] MEDS: FERROUS SULFATE 325 MG TABLET PO SCH (09:49)
[2021-09-24] MEDS: DOCUSATE/SENNA 50-8.6 MG TABLET PO SCH ×2 (09:49→21:13)
[2021-09-24] MEDS: PANTOPRAZOLE 40 MG TABLET PO SCH (09:49)
[2021-09-24] MEDS: GRANISETRON 1 MG/1 ML VIAL IV SCH (09:52)
[2021-09-24] MEDS: fentaNYL 12 MCG/HR PATCH TRANSDERM SCH (11:51)
[2021-09-24] MEDS: DEXAMETHASONE INJ 4 MG in SODIUM CHLORIDE 0.9% 50 ML IV SCH (17:12)
[2021-09-24] MEDS: ENOXAPARIN 40 MG/0.4 ML SYRINGE SUBCUT SCH (21:12)
[2021-09-24] MEDS: ATORVASTATIN 20 MG TABLET PO SCH (21:13)
[2021-09-25] MEDS: DEXAMETHASONE INJ 4 MG in SODIUM CHLORIDE 0.9% 50 ML IV SCH ×3 (00:23→17:43)
[2021-09-25 05:34] LABS: Basophils % 0.2 % (0.0-0.8); Hematocrit 32.1 VOL% (42.0-52.0); Immature Granulocytes % 1.6 %; Immature Granulocytes Absolute 0.07 #; Lymphocytes # 0.3 10*3/uL (1.4-4.0); Lymphocytes % 7.1 % (21.2-54.2); Mean Corpuscular HGB Conc 31.2 GM/DL (32-36); Mean Corpuscular Volume 81.7 FL (87-102); Mean Platelet Volume 9.2 FL (9.6-12.0); Monocytes # 0.2 10*3/uL (0.11-0.8); Monocytes % 4.3 % (1.7-12.7); Neutrophils % 86.8 % (38.7-73.9); Platelet Count 372 T/CUMM (130-400); Red Blood Count 3.93 MC/CUMM (3.8-5.5); Red Cell Distribution Width 17.9 % (9.3-17.3); White Blood Count 4.4 T/CUMM (4-12)
[2021-09-25 05:55] LABS: Calcium 8.3 MG/DL (8.5-10.1); Osmolality,Calculated 284.3 MOS/KG (273-304); Potassium 4.6 MMOL/L (3.5-5.1)
[2021-09-25] MEDS: INSULIN LISPRO 100 UNIT/ML SUBCUT SCH ×4 (08:47→22:07)
[2021-09-25] MEDS: GRANISETRON 1 MG/1 ML VIAL IV SCH (10:00)
[2021-09-25] MEDS: CHOLECALCIFEROL 5,000 UNIT TABLET PO SCH ×2 (10:01→22:06)
[2021-09-25] MEDS: BACLOFEN 10 MG TABLET PO SCH ×3 (10:01→22:06)
[2021-09-25] MEDS: SIMETHICONE CHEW 125 MG TABLET PO SCH ×2 (10:01→22:07)
[2021-09-25] MEDS: PANTOPRAZOLE 40 MG TABLET PO SCH (10:01)
[2021-09-25] MEDS: CIPROFLOXACIN 500 MG TABLET PO SCH (10:01)
[2021-09-25] MEDS: CYANOCOBALAMIN 500 MCG TABLET PO SCH ×2 (10:01→22:06)
[2021-09-25] MEDS: BACILLUS COAGULANS CAPLET PO SCH (10:02)
[2021-09-25] MEDS: DOCUSATE/SENNA 50-8.6 MG TABLET PO SCH ×2 (10:02→22:06)
[2021-09-25] MEDS: POLYETHYLENE GLYCOL POWDER 17 GM PACK PO SCH (10:02)
[2021-09-25] MEDS: ATORVASTATIN 20 MG TABLET PO SCH (22:06)
[2021-09-25] MEDS: ENOXAPARIN 40 MG/0.4 ML SYRINGE SUBCUT SCH (22:07)
[2021-09-26] MEDS: DEXAMETHASONE INJ 4 MG in SODIUM CHLORIDE 0.9% 50 ML IV SCH ×3 (01:08→19:21)
[2021-09-26] MEDS: POLYETHYLENE GLYCOL POWDER 17 GM PACK PO SCH ×2 (02:38→12:59)
[2021-09-26 05:59] LABS: Basophils % 0.2 % (0.0-0.8); Eosinophils % 0.2 % (0.00-10.9); Hematocrit 31.1 VOL% (42.0-52.0); Hemoglobin 9.8 GM/DL (14.0-18.0); Immature Granulocytes % 3.2 %; Immature Granulocytes Absolute 0.17 #; Lymphocytes # 0.4 10*3/uL (1.4-4.0); Lymphocytes % 7.7 % (21.2-54.2); Mean Corpuscular HGB Conc 31.5 GM/DL (32-36); Mean Corpuscular Volume 81.8 FL (87-102); Mean Platelet Volume 9.5 FL (9.6-12.0); Monocytes # 0.3 10*3/uL (0.11-0.8); Monocytes % 4.9 % (1.7-12.7); Neutrophils % 83.8 % (38.7-73.9); Platelet Count 370 T/CUMM (130-400); Red Cell Distribution Width 17.8 % (9.3-17.3); White Blood Count 5.3 T/CUMM (4-12)
[2021-09-26 06:15] LABS: Alanine Aminotransferase 33 U/L (16-61); Albumin 2.6 G/DL (3.4-5.0); Alkaline Phosphatase 159 U/L (45-117); Aspartate Amino Transferase 16 U/L (0-37); Bilirubin,Total < 0.39 MG/DL (0.20-1.00); Blood Urea Nitrogen 22 MG/DL (7-18); Calcium 8.4 MG/DL (8.5-10.1); Carbon Dioxide 24 MMOL/L (21-32); Chloride 110 MMOL/L (98-107); Glucose 150 MG/DL (74-106); Osmolality,Calculated 284.4 MOS/KG (273-304); Potassium 4.6 MMOL/L (3.5-5.1); Sodium 140 MMOL/L (136-145); Total Protein 6.6 G/DL (6.4-8.2)
[2021-09-26] MEDS: INSULIN LISPRO 100 UNIT/ML SUBCUT SCH ×4 (07:34→21:11)
[2021-09-26] MEDS: CHOLECALCIFEROL 5,000 UNIT TABLET PO SCH ×2 (09:08→21:11)
[2021-09-26] MEDS: CYANOCOBALAMIN 500 MCG TABLET PO SCH ×2 (09:08→21:10)
[2021-09-26] MEDS: PANTOPRAZOLE 40 MG TABLET PO SCH (09:08)
[2021-09-26] MEDS: BACILLUS COAGULANS CAPLET PO SCH (09:08)
[2021-09-26] MEDS: FERROUS SULFATE 325 MG TABLET PO SCH (09:08)
[2021-09-26] MEDS: SIMETHICONE CHEW 125 MG TABLET PO SCH ×2 (09:09→21:10)
[2021-09-26] MEDS: BACLOFEN 10 MG TABLET PO SCH ×3 (09:10→21:11)
[2021-09-26] MEDS ORDERED: diphenhydrAMINE CAP 25 MG CAPSULE PO ONE (12:00)
[2021-09-26] MEDS ORDERED: PALONOSETRON 0.25 MG/5 ML VIAL IV ONE (12:00)
[2021-09-26] MEDS ORDERED: DEXAMETHASONE 10 MG/1 ML VIAL IV ONE (12:00)
[2021-09-26] MEDS ORDERED: FAMOTIDINE 20 MG/2 ML VIAL IV ONE (12:00)
[2021-09-26] MEDS: DOCUSATE/SENNA 50-8.6 MG TABLET PO SCH ×2 (12:58→21:10)
[2021-09-26] MEDS ORDERED: DOCETAXEL IV ONE (13:00)
[2021-09-26] MEDS ORDERED: SODIUM CHLORIDE 0.9% IV ONE (13:00)
[2021-09-26] MEDS: GRANISETRON 1 MG/1 ML VIAL IV SCH (13:53)
[2021-09-26] MEDS: ENOXAPARIN 40 MG/0.4 ML SYRINGE SUBCUT SCH (21:10)
[2021-09-26] MEDS: ATORVASTATIN 20 MG TABLET PO SCH (21:10)
[2021-09-27] MEDS: DEXAMETHASONE INJ 4 MG in SODIUM CHLORIDE 0.9% 50 ML IV SCH ×3 (01:04→17:11)
[2021-09-27] MEDS: POLYETHYLENE GLYCOL POWDER 17 GM PACK PO SCH ×3 (02:55→21:42)
[2021-09-27 05:21] LABS: Basophils % 0.3 % (0.0-0.8); Hematocrit 31.6 VOL% (42.0-52.0); Hemoglobin 10.1 GM/DL (14.0-18.0); Immature Granulocytes % 2.1 %; Immature Granulocytes Absolute 0.08 #; Lymphocytes # 0.2 10*3/uL (1.4-4.0); Lymphocytes % 6.1 % (21.2-54.2); Mean Corpuscular Volume 80.8 FL (87-102); Mean Platelet Volume 9.5 FL (9.6-12.0); Monocytes # 0.1 10*3/uL (0.11-0.8); Monocytes % 3.5 % (1.7-12.7); NRBC # 0.02 10*3/uL; Platelet Count 361 T/CUMM (130-400); Red Blood Count 3.91 MC/CUMM (3.8-5.5); Red Cell Distribution Width 18.1 % (9.3-17.3); White Blood Count 3.7 T/CUMM (4-12)
[2021-09-27 05:45] LABS: Alanine Aminotransferase 33 U/L (16-61); Albumin 2.8 G/DL (3.4-5.0); Alkaline Phosphatase 165 U/L (45-117); Aspartate Amino Transferase 22 U/L (0-37); Bilirubin,Total < 0.39 MG/DL (0.20-1.00); Blood Urea Nitrogen 23 MG/DL (7-18); Calcium 8.3 MG/DL (8.5-10.1); Carbon Dioxide 23 MMOL/L (21-32); Chloride 109 MMOL/L (98-107); Glucose 160 MG/DL (74-106); Osmolality,Calculated 281.7 MOS/KG (273-304); Potassium 4.4 MMOL/L (3.5-5.1); Sodium 138 MMOL/L (136-145); Total Protein 6.9 G/DL (6.4-8.2)
[2021-09-27] MEDS: INSULIN LISPRO 100 UNIT/ML SUBCUT SCH ×4 (07:38→21:43)
[2021-09-27] MEDS: DOCUSATE/SENNA 50-8.6 MG TABLET PO SCH ×2 (10:07→21:42)
[2021-09-27] MEDS: BACILLUS COAGULANS CAPLET PO SCH (10:07)
[2021-09-27] MEDS: CYANOCOBALAMIN 500 MCG TABLET PO SCH ×2 (10:07→21:43)
[2021-09-27] MEDS: PANTOPRAZOLE 40 MG TABLET PO SCH (10:07)
[2021-09-27] MEDS: CHOLECALCIFEROL 5,000 UNIT TABLET PO SCH ×2 (10:08→21:44)
[2021-09-27] MEDS: BACLOFEN 10 MG TABLET PO SCH ×3 (10:08→21:43)
[2021-09-27] MEDS: SIMETHICONE CHEW 125 MG TABLET PO SCH ×2 (10:10→21:43)
[2021-09-27] MEDS: GRANISETRON 1 MG/1 ML VIAL IV SCH (10:11)
[2021-09-27] MEDS: fentaNYL 12 MCG/HR PATCH TRANSDERM SCH (10:17)
[2021-09-27] MEDS: ENOXAPARIN 40 MG/0.4 ML SYRINGE SUBCUT SCH (21:44)
[2021-09-27] MEDS: ATORVASTATIN 20 MG TABLET PO SCH (21:44)
[2021-09-28] MEDS: DEXAMETHASONE INJ 4 MG in SODIUM CHLORIDE 0.9% 50 ML IV SCH ×3 (01:56→16:43)
[2021-09-28 04:48] LABS: Basophils % 0.6 % (0.0-0.8); Eosinophils % 0.3 % (0.00-10.9); Hematocrit 30.9 VOL% (42.0-52.0); Hemoglobin 9.7 GM/DL (14.0-18.0); Immature Granulocytes % 1.5 %; Immature Granulocytes Absolute 0.05 #; Lymphocytes # 0.3 10*3/uL (1.4-4.0); Lymphocytes % 9.3 % (21.2-54.2); Mean Corpuscular HGB Conc 31.4 GM/DL (32-36); Monocytes # 0.2 10*3/uL (0.11-0.8); Monocytes % 6.8 % (1.7-12.7); NRBC # 0.02 10*3/uL; Neutrophils % 81.5 % (38.7-73.9); Platelet Count 309 T/CUMM (130-400); Red Blood Count 3.77 MC/CUMM (3.8-5.5); White Blood Count 3.2 T/CUMM (4-12)
[2021-09-28 05:10] LABS: Alanine Aminotransferase 31 U/L (16-61); Albumin 2.9 G/DL (3.4-5.0); Alkaline Phosphatase 154 U/L (45-117); Aspartate Amino Transferase 19 U/L (0-37); Bilirubin,Total < 0.39 MG/DL (0.20-1.00); Blood Urea Nitrogen 26 MG/DL (7-18); Calcium 8.3 MG/DL (8.5-10.1); Carbon Dioxide 24 MMOL/L (21-32); Chloride 109 MMOL/L (98-107); Glucose 148 MG/DL (74-106); Osmolality,Calculated 284.5 MOS/KG (273-304); Potassium 4.4 MMOL/L (3.5-5.1); Sodium 139 MMOL/L (136-145); Total Protein 6.6 G/DL (6.4-8.2)
[2021-09-28] MEDS: INSULIN LISPRO 100 UNIT/ML SUBCUT SCH ×4 (08:30→21:37)
[2021-09-28] MEDS: BACILLUS COAGULANS CAPLET PO SCH (10:02)
[2021-09-28] MEDS: DOCUSATE/SENNA 50-8.6 MG TABLET PO SCH ×2 (10:03→21:36)
[2021-09-28] MEDS: GRANISETRON 1 MG/1 ML VIAL IV SCH (10:04)
[2021-09-28] MEDS: CYANOCOBALAMIN 500 MCG TABLET PO SCH ×2 (10:05→21:36)
[2021-09-28] MEDS: PANTOPRAZOLE 40 MG TABLET PO SCH (10:05)
[2021-09-28] MEDS: CHOLECALCIFEROL 5,000 UNIT TABLET PO SCH ×2 (10:05→21:36)
[2021-09-28] MEDS: BACLOFEN 10 MG TABLET PO SCH ×3 (10:05→21:36)
[2021-09-28] MEDS: FERROUS SULFATE 325 MG TABLET PO SCH (10:05)
[2021-09-28] MEDS: SIMETHICONE CHEW 125 MG TABLET PO SCH ×2 (10:06→21:35)
[2021-09-28] MEDS: POLYETHYLENE GLYCOL POWDER 17 GM PACK PO SCH ×2 (10:06→21:37)
[2021-09-28] MEDS: ATORVASTATIN 20 MG TABLET PO SCH (21:36)
[2021-09-28] MEDS: ENOXAPARIN 40 MG/0.4 ML SYRINGE SUBCUT SCH (21:37)
[2021-09-29] MEDS: DEXAMETHASONE INJ 4 MG in SODIUM CHLORIDE 0.9% 50 ML IV SCH ×3 (01:06→17:09)
[2021-09-29 06:46] LABS: Hematocrit 33.6 VOL% (42.0-52.0); Hemoglobin 10.7 GM/DL (14.0-18.0); Immature Granulocytes % 1.5 %; Immature Granulocytes Absolute 0.04 #; Lymphocytes # 0.2 10*3/uL (1.4-4.0); Lymphocytes % 6.4 % (21.2-54.2); Mean Corpuscular HGB Conc 31.8 GM/DL (32-36); Mean Corpuscular Volume 82.4 FL (87-102); Mean Platelet Volume 9.8 FL (9.6-12.0); Monocytes # 0.2 10*3/uL (0.11-0.8); Monocytes % 5.6 % (1.7-12.7); NRBC # 0.04 10*3/uL; Neutrophils % 86.5 % (38.7-73.9); Platelet Count 282 T/CUMM (130-400); Red Blood Count 4.08 MC/CUMM (3.8-5.5); Red Cell Distribution Width 18.4 % (9.3-17.3); White Blood Count 2.7 T/CUMM (4-12)
[2021-09-29 07:18] LABS: Alanine Aminotransferase 29 U/L (16-61); Alkaline Phosphatase 152 U/L (45-117); Aspartate Amino Transferase 15 U/L (0-37); Bilirubin,Total < 0.39 MG/DL (0.20-1.00); Blood Urea Nitrogen 22 MG/DL (7-18); Calcium 8.7 MG/DL (8.5-10.1); Carbon Dioxide 26 MMOL/L (21-32); Chloride 107 MMOL/L (98-107); Glucose 176 MG/DL (74-106); Osmolality,Calculated 281.7 MOS/KG (273-304); Sodium 138 MMOL/L (136-145); Total Protein 6.9 G/DL (6.4-8.2)
[2021-09-29] MEDS: BACILLUS COAGULANS CAPLET PO SCH (09:33)
[2021-09-29] MEDS: INSULIN LISPRO 100 UNIT/ML SUBCUT SCH ×4 (09:33→20:32)
[2021-09-29] MEDS: BACLOFEN 10 MG TABLET PO SCH ×3 (09:34→20:33)
[2021-09-29] MEDS: CHOLECALCIFEROL 5,000 UNIT TABLET PO SCH ×2 (09:35→20:33)
[2021-09-29] MEDS: PANTOPRAZOLE 40 MG TABLET PO SCH (09:35)
[2021-09-29] MEDS: CYANOCOBALAMIN 500 MCG TABLET PO SCH ×2 (09:35→20:33)
[2021-09-29] MEDS: SIMETHICONE CHEW 125 MG TABLET PO SCH ×2 (09:35→20:33)
[2021-09-29] MEDS: DOCUSATE/SENNA 50-8.6 MG TABLET PO SCH ×2 (09:35→20:33)
[2021-09-29] MEDS: GRANISETRON 1 MG/1 ML VIAL IV SCH (09:37)
[2021-09-29] MEDS: POLYETHYLENE GLYCOL POWDER 17 GM PACK PO SCH ×2 (09:41→20:34)
[2021-09-29] MEDS: ENOXAPARIN 40 MG/0.4 ML SYRINGE SUBCUT SCH (20:32)
[2021-09-29] MEDS: ATORVASTATIN 20 MG TABLET PO SCH (20:33)
[2021-09-30] MEDS: DEXAMETHASONE INJ 4 MG in SODIUM CHLORIDE 0.9% 50 ML IV SCH ×3 (00:18→16:05)
[2021-09-30 05:10] LABS: Eosinophils % 0.4 % (0.00-10.9); Hematocrit 32.6 VOL% (42.0-52.0); Hemoglobin 10.4 GM/DL (14.0-18.0); Immature Granulocytes % 1.4 %; Immature Granulocytes Absolute 0.04 #; Lymphocytes # 0.2 10*3/uL (1.4-4.0); Lymphocytes % 5.8 % (21.2-54.2); Mean Corpuscular HGB Conc 31.9 GM/DL (32-36); Mean Corpuscular Volume 81.7 FL (87-102); Mean Platelet Volume 9.5 FL (9.6-12.0); Monocytes # 0.2 10*3/uL (0.11-0.8); Monocytes % 8.3 % (1.7-12.7); NRBC # 0.02 10*3/uL; Neutrophils % 84.1 % (38.7-73.9); Platelet Count 270 T/CUMM (130-400); Red Blood Count 3.99 MC/CUMM (3.8-5.5); Red Cell Distribution Width 18.4 % (9.3-17.3); White Blood Count 2.8 T/CUMM (4-12)
[2021-09-30 05:34] LABS: Alanine Aminotransferase 31 U/L (16-61); Albumin 2.8 G/DL (3.4-5.0); Alkaline Phosphatase 148 U/L (45-117); Aspartate Amino Transferase 14 U/L (0-37); Bilirubin,Total < 0.39 MG/DL (0.20-1.00); Blood Urea Nitrogen 22 MG/DL (7-18); Calcium 8.1 MG/DL (8.5-10.1); Carbon Dioxide 22 MMOL/L (21-32); Chloride 110 MMOL/L (98-107); Glucose 187 MG/DL (74-106); Osmolality,Calculated 286.4 MOS/KG (273-304); Sodium 140 MMOL/L (136-145); Total Protein 6.7 G/DL (6.4-8.2)
[2021-09-30] MEDS: SIMETHICONE CHEW 125 MG TABLET PO SCH ×2 (10:09→21:38)
[2021-09-30] MEDS: DOCUSATE/SENNA 50-8.6 MG TABLET PO SCH ×2 (10:09→21:39)
[2021-09-30] MEDS: FERROUS SULFATE 325 MG TABLET PO SCH (10:10)
[2021-09-30] MEDS: BACILLUS COAGULANS CAPLET PO SCH (10:10)
[2021-09-30] MEDS: CYANOCOBALAMIN 500 MCG TABLET PO SCH ×2 (10:10→21:39)
[2021-09-30] MEDS: BACLOFEN 10 MG TABLET PO SCH ×3 (10:10→21:38)
[2021-09-30] MEDS: fentaNYL 12 MCG/HR PATCH TRANSDERM SCH (10:11)
[2021-09-30] MEDS: GRANISETRON 1 MG/1 ML VIAL IV SCH (10:12)
[2021-09-30] MEDS: INSULIN LISPRO 100 UNIT/ML SUBCUT SCH ×4 (10:12→21:38)
[2021-09-30] MEDS: PANTOPRAZOLE 40 MG TABLET PO SCH (10:12)
[2021-09-30] MEDS: POLYETHYLENE GLYCOL POWDER 17 GM PACK PO SCH ×2 (10:36→21:39)
[2021-09-30] MEDS: CHOLECALCIFEROL 5,000 UNIT TABLET PO SCH ×2 (10:37→21:39)
[2021-09-30] MEDS: ATORVASTATIN 20 MG TABLET PO SCH (21:39)
[2021-09-30] MEDS: ENOXAPARIN 40 MG/0.4 ML SYRINGE SUBCUT SCH (21:39)
[2021-10-01] MEDS: DEXAMETHASONE INJ 4 MG in SODIUM CHLORIDE 0.9% 50 ML IV SCH ×3 (01:40→17:06)
[2021-10-01 04:41] LABS: Basophils % 0.4 % (0.0-0.8); Eosinophils % 1.1 % (0.00-10.9); Hematocrit 31.9 VOL% (42.0-52.0); Hemoglobin 10.2 GM/DL (14.0-18.0); Immature Granulocytes % 1.1 %; Immature Granulocytes Absolute 0.03 #; Lymphocytes # 0.3 10*3/uL (1.4-4.0); Mean Corpuscular Volume 81.2 FL (87-102); Mean Platelet Volume 9.8 FL (9.6-12.0); Monocytes # 0.3 10*3/uL (0.11-0.8); Monocytes % 11.8 % (1.7-12.7); NRBC # 0.04 10*3/uL; Neutrophils % 74.6 % (38.7-73.9); Platelet Count 260 T/CUMM (130-400); Red Blood Count 3.93 MC/CUMM (3.8-5.5); Red Cell Distribution Width 18.6 % (9.3-17.3); White Blood Count 2.6 T/CUMM (4-12)
[2021-10-01 05:02] LABS: Calcium 8.5 MG/DL (8.5-10.1); Osmolality,Calculated 279.8 MOS/KG (273-304); Potassium 4.4 MMOL/L (3.5-5.1)
[2021-10-01] MEDS: INSULIN LISPRO 100 UNIT/ML SUBCUT SCH ×4 (09:09→20:55)
[2021-10-01] MEDS: POLYETHYLENE GLYCOL POWDER 17 GM PACK PO SCH ×2 (09:11→21:04)
[2021-10-01] MEDS: SIMETHICONE CHEW 125 MG TABLET PO SCH ×2 (09:11→20:53)
[2021-10-01] MEDS: DOCUSATE/SENNA 50-8.6 MG TABLET PO SCH ×2 (09:11→21:05)
[2021-10-01] MEDS: PANTOPRAZOLE 40 MG TABLET PO SCH (09:12)
[2021-10-01] MEDS: CHOLECALCIFEROL 5,000 UNIT TABLET PO SCH ×2 (09:12→20:54)
[2021-10-01] MEDS: BACILLUS COAGULANS CAPLET PO SCH (09:12)
[2021-10-01] MEDS: CYANOCOBALAMIN 500 MCG TABLET PO SCH ×2 (09:12→20:54)
[2021-10-01] MEDS: GRANISETRON 1 MG/1 ML VIAL IV SCH (09:19)
[2021-10-01] MEDS: BACLOFEN 10 MG TABLET PO SCH ×3 (09:30→20:54)
[2021-10-01] MEDS: ATORVASTATIN 20 MG TABLET PO SCH (20:54)
[2021-10-01] MEDS: ENOXAPARIN 40 MG/0.4 ML SYRINGE SUBCUT SCH (20:55)
[2021-10-02] MEDS: DEXAMETHASONE INJ 4 MG in SODIUM CHLORIDE 0.9% 50 ML IV SCH ×3 (00:40→17:56)
[2021-10-02 04:50] LABS: Basophils % 0.3 % (0.0-0.8); Eosinophils % 0.3 % (0.00-10.9); Hematocrit 31.5 VOL% (42.0-52.0); Hemoglobin 10.1 GM/DL (14.0-18.0); Immature Granulocytes % 0.6 %; Immature Granulocytes Absolute 0.02 #; Lymphocytes # 0.2 10*3/uL (1.4-4.0); Lymphocytes % 6.6 % (21.2-54.2); Mean Corpuscular HGB Conc 32.1 GM/DL (32-36); Mean Corpuscular Volume 81.4 FL (87-102); Mean Platelet Volume 9.8 FL (9.6-12.0); Monocytes # 0.3 10*3/uL (0.11-0.8); Monocytes % 8.7 % (1.7-12.7); Neutrophils % 83.5 % (38.7-73.9); Platelet Count 237 T/CUMM (130-400); Red Blood Count 3.87 MC/CUMM (3.8-5.5); Red Cell Distribution Width 18.9 % (9.3-17.3); White Blood Count 3.4 T/CUMM (4-12)
[2021-10-02 05:16] LABS: Calcium 7.9 MG/DL (8.5-10.1); Osmolality,Calculated 282.7 MOS/KG (273-304); Potassium 4.4 MMOL/L (3.5-5.1)
[2021-10-02] MEDS: FERROUS SULFATE 325 MG TABLET PO SCH (09:26)
[2021-10-02] MEDS: BACLOFEN 10 MG TABLET PO SCH ×3 (09:26→22:35)
[2021-10-02] MEDS: BACILLUS COAGULANS CAPLET PO SCH (09:26)
[2021-10-02] MEDS: PANTOPRAZOLE 40 MG TABLET PO SCH (09:27)
[2021-10-02] MEDS: CHOLECALCIFEROL 5,000 UNIT TABLET PO SCH ×2 (09:27→22:36)
[2021-10-02] MEDS: CYANOCOBALAMIN 500 MCG TABLET PO SCH ×2 (09:27→22:36)
[2021-10-02] MEDS: DOCUSATE/SENNA 50-8.6 MG TABLET PO SCH ×2 (09:28→22:35)
[2021-10-02] MEDS: SIMETHICONE CHEW 125 MG TABLET PO SCH ×2 (09:28→22:36)
[2021-10-02] MEDS: POLYETHYLENE GLYCOL POWDER 17 GM PACK PO SCH ×2 (09:28→22:51)
[2021-10-02] MEDS: GRANISETRON 1 MG/1 ML VIAL IV SCH (09:29)
[2021-10-02] MEDS: INSULIN LISPRO 100 UNIT/ML SUBCUT SCH ×4 (09:33→22:36)
[2021-10-02] MEDS: ATORVASTATIN 20 MG TABLET PO SCH (22:36)
[2021-10-02] MEDS: ENOXAPARIN 40 MG/0.4 ML SYRINGE SUBCUT SCH (22:36)
[2021-10-03] MEDS: DEXAMETHASONE INJ 4 MG in SODIUM CHLORIDE 0.9% 50 ML IV SCH ×3 (01:27→18:05)
[2021-10-03] MEDS: BACILLUS COAGULANS CAPLET PO SCH (10:06)
[2021-10-03] MEDS: BACLOFEN 10 MG TABLET PO SCH ×3 (10:07→21:43)
[2021-10-03] MEDS: CHOLECALCIFEROL 5,000 UNIT TABLET PO SCH ×2 (10:07→21:42)
[2021-10-03] MEDS: CYANOCOBALAMIN 500 MCG TABLET PO SCH ×2 (10:07→21:43)
[2021-10-03] MEDS: PANTOPRAZOLE 40 MG TABLET PO SCH (10:07)
[2021-10-03] MEDS: POLYETHYLENE GLYCOL POWDER 17 GM PACK PO SCH ×2 (10:08→21:44)
[2021-10-03] MEDS: DOCUSATE/SENNA 50-8.6 MG TABLET PO SCH ×2 (10:08→21:43)
[2021-10-03] MEDS: INSULIN LISPRO 100 UNIT/ML SUBCUT SCH ×4 (10:10→21:43)
[2021-10-03] MEDS: SIMETHICONE CHEW 125 MG TABLET PO SCH ×2 (10:10→21:42)
[2021-10-03] MEDS: GRANISETRON 1 MG/1 ML VIAL IV SCH (10:14)
[2021-10-03] MEDS ORDERED: diphenhydrAMINE CAP 50 MG CAPSULE PO ONE (12:30)
[2021-10-03] MEDS ORDERED: DEXAMETHASONE 10 MG/1 ML VIAL IV ONE (12:30)
[2021-10-03] MEDS ORDERED: FAMOTIDINE 20 MG TABLET PO ONE (12:30)
[2021-10-03] MEDS: fentaNYL 12 MCG/HR PATCH TRANSDERM SCH (12:43)
[2021-10-03] MEDS ORDERED: SODIUM CHLORIDE 0.9% IV ONE (13:00)
[2021-10-03] MEDS ORDERED: DOCETAXEL IV ONE (13:00)
[2021-10-03] MEDS: ATORVASTATIN 20 MG TABLET PO SCH (21:43)
[2021-10-03] MEDS: ENOXAPARIN 40 MG/0.4 ML SYRINGE SUBCUT SCH (21:43)
[2021-10-04] MEDS: DEXAMETHASONE INJ 4 MG in SODIUM CHLORIDE 0.9% 50 ML IV SCH ×2 (02:04→08:46)
[2021-10-04] MEDS: GRANISETRON 1 MG/1 ML VIAL IV SCH (08:47)
[2021-10-04] MEDS: CYANOCOBALAMIN 500 MCG TABLET PO SCH ×2 (08:47→20:46)
[2021-10-04] MEDS: FERROUS SULFATE 325 MG TABLET PO SCH (08:47)
[2021-10-04] MEDS: PANTOPRAZOLE 40 MG TABLET PO SCH (08:47)
[2021-10-04] MEDS: BACILLUS COAGULANS CAPLET PO SCH (08:47)
[2021-10-04] MEDS: DOCUSATE/SENNA 50-8.6 MG TABLET PO SCH ×2 (08:47→20:46)
[2021-10-04] MEDS: CHOLECALCIFEROL 5,000 UNIT TABLET PO SCH ×2 (08:48→20:46)
[2021-10-04] MEDS: INSULIN LISPRO 100 UNIT/ML SUBCUT SCH ×4 (08:48→20:47)
[2021-10-04] MEDS: OMEPRAZOLE ODT 20 MG TABLET PO SCH (09:45)
[2021-10-04] MEDS: BACLOFEN 10 MG TABLET PO SCH ×3 (09:45→20:46)
[2021-10-04] MEDS: SIMETHICONE CHEW 125 MG TABLET PO SCH ×2 (09:49→20:46)
[2021-10-04] MEDS: POLYETHYLENE GLYCOL POWDER 17 GM PACK PO SCH ×2 (09:49→20:47)
[2021-10-04] MEDS: ENOXAPARIN 40 MG/0.4 ML SYRINGE SUBCUT SCH (20:46)
[2021-10-04] MEDS: ATORVASTATIN 20 MG TABLET PO SCH (20:46)
[2021-10-04] MEDS: DEXAMETHASONE 4 MG TABLET PO SCH (20:46)
[2021-10-05 04:40] LABS: Basophils % 0.3 % (0.0-0.8); Hematocrit 32.8 VOL% (42.0-52.0); Hemoglobin 10.5 GM/DL (14.0-18.0); Immature Granulocytes % 0.7 %; Immature Granulocytes Absolute 0.02 #; Lymphocytes # 0.2 10*3/uL (1.4-4.0); Mean Platelet Volume 9.6 FL (9.6-12.0); Monocytes # 0.3 10*3/uL (0.11-0.8); Monocytes % 8.6 % (1.7-12.7); Neutrophils % 85.4 % (38.7-73.9); Platelet Count 218 T/CUMM (130-400); Red Blood Count 4.05 MC/CUMM (3.8-5.5); Red Cell Distribution Width 19.4 % (9.3-17.3)
[2021-10-05 05:04] LABS: Alanine Aminotransferase 23 U/L (16-61); Albumin 2.8 G/DL (3.4-5.0); Alkaline Phosphatase 124 U/L (45-117); Aspartate Amino Transferase 15 U/L (0-37); Bilirubin,Total < 0.39 MG/DL (0.20-1.00); Blood Urea Nitrogen 22 MG/DL (7-18); Calcium 8.4 MG/DL (8.5-10.1); Carbon Dioxide 22 MMOL/L (21-32); Chloride 108 MMOL/L (98-107); Glucose 216 MG/DL (74-106); Osmolality,Calculated 284.7 MOS/KG (273-304); Potassium 4.5 MMOL/L (3.5-5.1); Sodium 138 MMOL/L (136-145); Total Protein 6.5 G/DL (6.4-8.2)
[2021-10-05] MEDS ORDERED: ATEZOLIZUMAB 1,200 MG in SODIUM CHLORIDE 0.9% 250 ML IV ONE (07:25)
[2021-10-05] MEDS ORDERED: ETOPOSIDE 120 MG in SODIUM CHLORIDE 0.9% 500 ML IV ONE (07:26)
[2021-10-05] MEDS ORDERED: CARBOplatin 300 MG in SODIUM CHLORIDE 0.9% 250 ML IV ONE (07:27)
[2021-10-05] MEDS ORDERED: DEXAMETHASONE 10 MG/1 ML VIAL IV ONE (07:28)
[2021-10-05] MEDS ORDERED: diphenhydrAMINE CAP 50 MG CAPSULE PO ONE (07:30)
[2021-10-05] MEDS ORDERED: GRANISETRON 1 MG/1 ML VIAL IV SCH ×2 (09:00)
[2021-10-05] MEDS: POLYETHYLENE GLYCOL POWDER 17 GM PACK PO SCH ×2 (10:01→21:14)
[2021-10-05] MEDS: INSULIN LISPRO 100 UNIT/ML SUBCUT SCH ×4 (10:01→21:14)
[2021-10-05] MEDS: BACILLUS COAGULANS CAPLET PO SCH (10:02)
[2021-10-05] MEDS: SIMETHICONE CHEW 125 MG TABLET PO SCH ×2 (10:02→21:13)
[2021-10-05] MEDS: DOCUSATE/SENNA 50-8.6 MG TABLET PO SCH ×2 (10:02→21:13)
[2021-10-05] MEDS: PANTOPRAZOLE 40 MG TABLET PO SCH (10:02)
[2021-10-05] MEDS: BACLOFEN 10 MG TABLET PO SCH ×3 (10:03→21:13)
[2021-10-05] MEDS: CHOLECALCIFEROL 5,000 UNIT TABLET PO SCH ×2 (10:03→21:13)
[2021-10-05] MEDS: OMEPRAZOLE ODT 20 MG TABLET PO SCH (10:03)
[2021-10-05] MEDS: CYANOCOBALAMIN 500 MCG TABLET PO SCH ×2 (10:03→21:13)
[2021-10-05] MEDS: GRANISETRON 1 MG/1 ML VIAL IV SCH (10:04)
[2021-10-05] MEDS: DEXAMETHASONE 4 MG TABLET PO SCH ×2 (10:05→21:13)
[2021-10-05] MEDS: ATORVASTATIN 20 MG TABLET PO SCH (21:13)
[2021-10-05] MEDS: ENOXAPARIN 40 MG/0.4 ML SYRINGE SUBCUT SCH (21:14)
[2021-10-06] MEDS: POLYETHYLENE GLYCOL POWDER 17 GM PACK PO SCH ×2 (10:12→20:47)
[2021-10-06] MEDS: DEXAMETHASONE 4 MG TABLET PO SCH ×2 (10:13→20:46)
[2021-10-06] MEDS: CYANOCOBALAMIN 500 MCG TABLET PO SCH ×2 (10:14→20:47)
[2021-10-06] MEDS: CHOLECALCIFEROL 5,000 UNIT TABLET PO SCH ×2 (10:15→20:46)
[2021-10-06] MEDS: FERROUS SULFATE 325 MG TABLET PO SCH (10:15)
[2021-10-06] MEDS: PANTOPRAZOLE 40 MG TABLET PO SCH (10:15)
[2021-10-06] MEDS: DOCUSATE/SENNA 50-8.6 MG TABLET PO SCH ×2 (10:16→20:46)
[2021-10-06] MEDS: BACILLUS COAGULANS CAPLET PO SCH (10:16)
[2021-10-06] MEDS: SIMETHICONE CHEW 125 MG TABLET PO SCH ×2 (10:17→20:46)
[2021-10-06] MEDS: BACLOFEN 10 MG TABLET PO SCH ×3 (10:17→20:47)
[2021-10-06] MEDS: OMEPRAZOLE ODT 20 MG TABLET PO SCH (10:18)
[2021-10-06] MEDS: fentaNYL 12 MCG/HR PATCH TRANSDERM SCH (10:19)
[2021-10-06] MEDS: INSULIN LISPRO 100 UNIT/ML SUBCUT SCH ×4 (10:21→20:48)
[2021-10-06] MEDS: GRANISETRON 1 MG/1 ML VIAL IV SCH (10:22)
[2021-10-06] MEDS ORDERED: diphenhydrAMINE CAP 50 MG CAPSULE PO ONE (13:00)
[2021-10-06] MEDS ORDERED: DEXAMETHASONE INJ 10 MG in SODIUM CHLORIDE 0.9% 50 ML IV ONE (13:00)
[2021-10-06] MEDS: CLOTRIMAZOLE 10 MG TROCHE PO SCH ×3 (13:11→20:47)
[2021-10-06] MEDS ORDERED: DOCETAXEL IV ONE ×2 (13:30→15:00)
[2021-10-06] MEDS ORDERED: SODIUM CHLORIDE 0.9% IV ONE ×2 (13:30→15:00)
[2021-10-06] MEDS: ATORVASTATIN 20 MG TABLET PO SCH (20:46)
[2021-10-06] MEDS: MENTHOL/ZINC OXIDE OINT 71 GM JAR TOP SCH (20:47)
[2021-10-06] MEDS: ENOXAPARIN 40 MG/0.4 ML SYRINGE SUBCUT SCH (20:47)
[2021-10-07 05:16] LABS: Hematocrit 32.9 VOL% (42.0-52.0); Hemoglobin 10.7 GM/DL (14.0-18.0); Lymphocytes # 0.1 10*3/uL (1.4-4.0); Lymphocytes % 5.1 % (21.2-54.2); Mean Corpuscular HGB Conc 32.5 GM/DL (32-36); Mean Corpuscular Volume 80.2 FL (87-102); Mean Platelet Volume 10.4 FL (9.6-12.0); Monocytes # 0.3 10*3/uL (0.11-0.8); Monocytes % 10.2 % (1.7-12.7); Neutrophils % 84.7 % (38.7-73.9); Platelet Count 214 T/CUMM (130-400); Red Cell Distribution Width 19.4 % (9.3-17.3); White Blood Count 2.6 T/CUMM (4-12)
[2021-10-07 05:31] LABS: Albumin 2.7 G/DL (3.4-5.0); Bilirubin,Total 0.5 MG/DL (0.20-1.00); Calcium 8.3 MG/DL (8.5-10.1); Potassium 4.4 MMOL/L (3.5-5.1); Total Protein 6.6 G/DL (6.4-8.2)
[2021-10-07 06:42] LABS: Band Neutrophils 2 % (0-10); Lymphocytes 4 % (20-55); Platelet Estimate Adequate; Total Cells Counted 100
[2021-10-07] MEDS: DOCUSATE/SENNA 50-8.6 MG TABLET PO SCH ×2 (09:56→20:46)
[2021-10-07] MEDS: DEXAMETHASONE 4 MG TABLET PO SCH ×2 (09:57→20:45)
[2021-10-07] MEDS: PANTOPRAZOLE 40 MG TABLET PO SCH (09:57)
[2021-10-07] MEDS: CYANOCOBALAMIN 500 MCG TABLET PO SCH ×2 (09:57→20:46)
[2021-10-07] MEDS: CHOLECALCIFEROL 5,000 UNIT TABLET PO SCH ×2 (09:57→20:46)
[2021-10-07] MEDS: BACILLUS COAGULANS CAPLET PO SCH (09:58)
[2021-10-07] MEDS: BACLOFEN 10 MG TABLET PO SCH ×3 (09:58→20:46)
[2021-10-07] MEDS: OMEPRAZOLE ODT 20 MG TABLET PO SCH (09:58)
[2021-10-07] MEDS: POLYETHYLENE GLYCOL POWDER 17 GM PACK PO SCH ×2 (09:59→20:47)
[2021-10-07] MEDS: SIMETHICONE CHEW 125 MG TABLET PO SCH ×2 (10:01→20:45)
[2021-10-07] MEDS: CLOTRIMAZOLE 10 MG TROCHE PO SCH ×4 (10:01→20:46)
[2021-10-07] MEDS: INSULIN LISPRO 100 UNIT/ML SUBCUT SCH ×4 (10:02→20:47)
[2021-10-07] MEDS: MENTHOL/ZINC OXIDE OINT 71 GM JAR TOP SCH ×2 (10:03→20:47)
[2021-10-07] MEDS: GRANISETRON 1 MG/1 ML VIAL IV SCH (10:03)
[2021-10-07] MEDS: ENOXAPARIN 40 MG/0.4 ML SYRINGE SUBCUT SCH (20:45)
[2021-10-07] MEDS: ATORVASTATIN 20 MG TABLET PO SCH (20:46)
[2021-10-08 05:36] LABS: Basophils % 0.4 % (0.0-0.8); Hematocrit 32.7 VOL% (42.0-52.0); Hemoglobin 10.4 GM/DL (14.0-18.0); Immature Granulocytes % 0.4 %; Immature Granulocytes Absolute 0.01 #; Lymphocytes # 0.1 10*3/uL (1.4-4.0); Lymphocytes % 3.5 % (21.2-54.2); Mean Corpuscular HGB Conc 31.8 GM/DL (32-36); Mean Corpuscular Volume 80.7 FL (87-102); Mean Platelet Volume 11.1 FL (9.6-12.0); Monocytes # 0.3 10*3/uL (0.11-0.8); Monocytes % 10.6 % (1.7-12.7); Neutrophils % 85.1 % (38.7-73.9); Platelet Count 205 T/CUMM (130-400); Red Blood Count 4.05 MC/CUMM (3.8-5.5); White Blood Count 2.8 T/CUMM (4-12)
[2021-10-08 05:59] LABS: Band Neutrophils 1 % (0-10); Lymphocytes 9 % (20-55); Platelet Estimate Adequate; Total Cells Counted 100
[2021-10-08 06:00] LABS: Hypochromia Slight; Microcytosis Slight
[2021-10-08 06:06] LABS: Albumin 2.4 G/DL (3.4-5.0); Bilirubin,Total 0.5 MG/DL (0.20-1.00); Calcium 7.8 MG/DL (8.5-10.1); Osmolality,Calculated 273.2 MOS/KG (273-304); Potassium 4.4 MMOL/L (3.5-5.1); Total Protein 6.3 G/DL (6.4-8.2)
[2021-10-08] MEDS: GRANISETRON 1 MG/1 ML VIAL IV SCH (09:23)
[2021-10-08] MEDS: CYANOCOBALAMIN 500 MCG TABLET PO SCH ×2 (09:24→21:16)
[2021-10-08] MEDS: CLOTRIMAZOLE 10 MG TROCHE PO SCH ×4 (09:24→21:16)
[2021-10-08] MEDS: DOCUSATE/SENNA 50-8.6 MG TABLET PO SCH ×2 (09:24→21:15)
[2021-10-08] MEDS: PANTOPRAZOLE 40 MG TABLET PO SCH (09:24)
[2021-10-08] MEDS: BACLOFEN 10 MG TABLET PO SCH ×3 (09:24→21:17)
[2021-10-08] MEDS: OMEPRAZOLE ODT 20 MG TABLET PO SCH (09:24)
[2021-10-08] MEDS: FERROUS SULFATE 325 MG TABLET PO SCH (09:24)
[2021-10-08] MEDS: DEXAMETHASONE 4 MG TABLET PO SCH ×2 (09:24→21:16)
[2021-10-08] MEDS: SIMETHICONE CHEW 125 MG TABLET PO SCH ×2 (09:24→21:16)
[2021-10-08] MEDS: BACILLUS COAGULANS CAPLET PO SCH (09:24)
[2021-10-08] MEDS: CHOLECALCIFEROL 5,000 UNIT TABLET PO SCH ×2 (09:24→21:16)
[2021-10-08] MEDS: MENTHOL/ZINC OXIDE OINT 71 GM JAR TOP SCH ×2 (09:25→21:17)
[2021-10-08] MEDS: INSULIN LISPRO 100 UNIT/ML SUBCUT SCH ×4 (09:29→21:16)
[2021-10-08] MEDS: POLYETHYLENE GLYCOL POWDER 17 GM PACK PO SCH ×2 (09:30→21:17)
[2021-10-08] MEDS: ATORVASTATIN 20 MG TABLET PO SCH (21:15)
[2021-10-08] MEDS: PANTOPRAZOLE 20 MG TABLET PO SCH (21:16)
[2021-10-08] MEDS: ENOXAPARIN 40 MG/0.4 ML SYRINGE SUBCUT SCH (21:17)
[2021-10-09 05:42] LABS: Basophils % 0.9 % (0.0-0.8); Hematocrit 33.6 VOL% (42.0-52.0); Hemoglobin 10.8 GM/DL (14.0-18.0); Immature Granulocytes % 0.9 %; Immature Granulocytes Absolute 0.02 #; Lymphocytes # 0.2 10*3/uL (1.4-4.0); Lymphocytes % 6.6 % (21.2-54.2); Mean Corpuscular HGB Conc 32.1 GM/DL (32-36); Mean Corpuscular Volume 80.2 FL (87-102); Mean Platelet Volume 10.1 FL (9.6-12.0); Monocytes # 0.3 10*3/uL (0.11-0.8); Monocytes % 11.1 % (1.7-12.7); Neutrophils % 80.5 % (38.7-73.9); Platelet Count 204 T/CUMM (130-400); Red Blood Count 4.19 MC/CUMM (3.8-5.5); White Blood Count 2.3 T/CUMM (4-12)
[2021-10-09 06:11] LABS: Albumin 2.5 G/DL (3.4-5.0); Bilirubin,Total 0.5 MG/DL (0.20-1.00); Calcium 8.1 MG/DL (8.5-10.1); Osmolality,Calculated 275.1 MOS/KG (273-304); Potassium 4.7 MMOL/L (3.5-5.1); Total Protein 6.5 G/DL (6.4-8.2)
[2021-10-09 06:18] LABS: Band Neutrophils 4 % (0-10); Hypochromia Slight; Lymphocytes 2 % (20-55); Microcytosis Slight; Platelet Estimate Adequate; Total Cells Counted 100
[2021-10-09] MEDS: INSULIN LISPRO 100 UNIT/ML SUBCUT SCH ×4 (08:03→21:58)
[2021-10-09] MEDS: BACLOFEN 10 MG TABLET PO SCH ×3 (09:34→21:56)
[2021-10-09] MEDS: PANTOPRAZOLE 20 MG TABLET PO SCH ×2 (09:34→21:56)
[2021-10-09] MEDS: CYANOCOBALAMIN 500 MCG TABLET PO SCH ×2 (09:34→21:56)
[2021-10-09] MEDS: DEXAMETHASONE 4 MG TABLET PO SCH ×2 (09:34→21:57)
[2021-10-09] MEDS: DOCUSATE/SENNA 50-8.6 MG TABLET PO SCH ×2 (09:34→21:57)
[2021-10-09] MEDS: SIMETHICONE CHEW 125 MG TABLET PO SCH ×2 (09:34→21:57)
[2021-10-09] MEDS: BACILLUS COAGULANS CAPLET PO SCH (09:34)
[2021-10-09] MEDS: CLOTRIMAZOLE 10 MG TROCHE PO SCH ×4 (09:34→21:57)
[2021-10-09] MEDS: CHOLECALCIFEROL 5,000 UNIT TABLET PO SCH ×2 (09:34→21:56)
[2021-10-09] MEDS: fentaNYL 12 MCG/HR PATCH TRANSDERM SCH (09:35)
[2021-10-09] MEDS: MENTHOL/ZINC OXIDE OINT 71 GM JAR TOP SCH ×2 (09:35→21:58)
[2021-10-09] MEDS: GRANISETRON 1 MG/1 ML VIAL IV SCH (09:35)
[2021-10-09] MEDS: POLYETHYLENE GLYCOL POWDER 17 GM PACK PO SCH ×2 (09:36→21:58)
[2021-10-09] MEDS: ATORVASTATIN 20 MG TABLET PO SCH (21:56)
[2021-10-09] MEDS: ENOXAPARIN 40 MG/0.4 ML SYRINGE SUBCUT SCH (21:56)
[2021-10-10 05:10] LABS: Basophils % 1.5 % (0.0-0.8); Hematocrit 33.7 VOL% (42.0-52.0); Immature Granulocytes % 1.1 %; Immature Granulocytes Absolute 0.03 #; Lymphocytes # 0.1 10*3/uL (1.4-4.0); Lymphocytes % 3.4 % (21.2-54.2); Mean Corpuscular HGB Conc 32.6 GM/DL (32-36); Mean Corpuscular Volume 80.2 FL (87-102); Mean Platelet Volume 10.6 FL (9.6-12.0); Monocytes # 0.2 10*3/uL (0.11-0.8); Monocytes % 8.4 % (1.7-12.7); Neutrophils % 85.6 % (38.7-73.9); Platelet Count 219 T/CUMM (130-400); Red Cell Distribution Width 18.9 % (9.3-17.3); White Blood Count 2.6 T/CUMM (4-12)
[2021-10-10 05:34] LABS: Lymphocytes 5 % (20-55); Platelet Estimate Adequate; Total Cells Counted 100
[2021-10-10 05:35] LABS: Hypochromia Slight; Microcytosis Slight
[2021-10-10 05:40] LABS: Albumin 2.4 G/DL (3.4-5.0); Bilirubin,Total 0.5 MG/DL (0.20-1.00); Calcium 8.4 MG/DL (8.5-10.1); Osmolality,Calculated 266.8 MOS/KG (273-304); Potassium 4.3 MMOL/L (3.5-5.1); Total Protein 6.5 G/DL (6.4-8.2)
[2021-10-10] MEDS: INSULIN LISPRO 100 UNIT/ML SUBCUT SCH ×4 (09:40→21:22)
[2021-10-10] MEDS: CYANOCOBALAMIN 500 MCG TABLET PO SCH ×2 (09:54→21:22)
[2021-10-10] MEDS: MENTHOL/ZINC OXIDE OINT 71 GM JAR TOP SCH ×2 (09:54→21:24)
[2021-10-10] MEDS: DEXAMETHASONE 4 MG TABLET PO SCH ×2 (09:54→21:23)
[2021-10-10] MEDS: BACILLUS COAGULANS CAPLET PO SCH (09:54)
[2021-10-10] MEDS: PANTOPRAZOLE 20 MG TABLET PO SCH ×2 (09:55→21:22)
[2021-10-10] MEDS: FERROUS SULFATE 325 MG TABLET PO SCH (09:55)
[2021-10-10] MEDS: CHOLECALCIFEROL 5,000 UNIT TABLET PO SCH ×2 (09:55→21:23)
[2021-10-10] MEDS: DOCUSATE/SENNA 50-8.6 MG TABLET PO SCH ×2 (09:56→21:22)
[2021-10-10] MEDS: PROCHLORPERAZINE 10 MG TABLET PO SCH ×3 (09:56→21:23)
[2021-10-10] MEDS: POLYETHYLENE GLYCOL POWDER 17 GM PACK PO SCH ×2 (09:56→21:24)
[2021-10-10] MEDS: BACLOFEN 10 MG TABLET PO SCH ×3 (09:58→21:23)
[2021-10-10] MEDS: SIMETHICONE CHEW 125 MG TABLET PO SCH ×2 (09:59→21:23)
[2021-10-10] MEDS: CLOTRIMAZOLE 10 MG TROCHE PO SCH ×4 (10:10→21:23)
[2021-10-10] MEDS: GRANISETRON 1 MG/1 ML VIAL IV SCH (10:10)
[2021-10-10] MEDS: SUCRALFATE 1 GM/10 ML UDCUP PO SCH ×3 (13:28→21:24)
[2021-10-10] MEDS: ENOXAPARIN 40 MG/0.4 ML SYRINGE SUBCUT SCH (21:22)
[2021-10-10] MEDS: ATORVASTATIN 20 MG TABLET PO SCH (21:23)
[2021-10-11 05:27] LABS: Basophils % 1.3 % (0.0-0.8); Hematocrit 33.8 VOL% (42.0-52.0); Hemoglobin 10.9 GM/DL (14.0-18.0); Immature Granulocytes % 0.9 %; Immature Granulocytes Absolute 0.02 #; Lymphocytes # 0.2 10*3/uL (1.4-4.0); Lymphocytes % 6.7 % (21.2-54.2); Mean Corpuscular HGB Conc 32.2 GM/DL (32-36); Mean Corpuscular Volume 80.7 FL (87-102); Mean Platelet Volume 10.5 FL (9.6-12.0); Monocytes # 0.2 10*3/uL (0.11-0.8); Monocytes % 9.4 % (1.7-12.7); Neutrophils % 81.7 % (38.7-73.9); Platelet Count 230 T/CUMM (130-400); Red Blood Count 4.19 MC/CUMM (3.8-5.5); Red Cell Distribution Width 18.8 % (9.3-17.3); White Blood Count 2.2 T/CUMM (4-12)
[2021-10-11 05:56] LABS: Hypochromia Slight; Lymphocytes 6 % (20-55); Microcytosis Slight; Nucleated Red Blood Cells 1 /100 WBC (0-5); Platelet Estimate Adequate; Total Cells Counted 100
[2021-10-11 05:58] LABS: Albumin 2.5 G/DL (3.4-5.0); Bilirubin,Total 0.5 MG/DL (0.20-1.00); Calcium 8.2 MG/DL (8.5-10.1); Osmolality,Calculated 272.2 MOS/KG (273-304); Potassium 4.4 MMOL/L (3.5-5.1); Total Protein 6.6 G/DL (6.4-8.2)
[2021-10-11] MEDS: INSULIN LISPRO 100 UNIT/ML SUBCUT SCH ×4 (07:34→21:52)
[2021-10-11] MEDS: DEXAMETHASONE 4 MG TABLET PO SCH ×2 (09:31→21:51)
[2021-10-11] MEDS: CYANOCOBALAMIN 500 MCG TABLET PO SCH ×2 (09:32→21:51)
[2021-10-11] MEDS: CHOLECALCIFEROL 5,000 UNIT TABLET PO SCH ×2 (09:32→21:50)
[2021-10-11] MEDS: BACILLUS COAGULANS CAPLET PO SCH (09:32)
[2021-10-11] MEDS: DOCUSATE/SENNA 50-8.6 MG TABLET PO SCH ×2 (09:32→21:52)
[2021-10-11] MEDS: PANTOPRAZOLE 20 MG TABLET PO SCH ×2 (09:32→21:50)
[2021-10-11] MEDS: PROCHLORPERAZINE 10 MG TABLET PO SCH ×3 (09:33→21:51)
[2021-10-11] MEDS: CLOTRIMAZOLE 10 MG TROCHE PO SCH ×4 (09:33→21:51)
[2021-10-11] MEDS: SIMETHICONE CHEW 125 MG TABLET PO SCH ×2 (09:33→21:51)
[2021-10-11] MEDS: SUCRALFATE 1 GM/10 ML UDCUP PO SCH ×4 (09:33→21:50)
[2021-10-11] MEDS: BACLOFEN 10 MG TABLET PO SCH ×3 (09:33→21:51)
[2021-10-11] MEDS: POLYETHYLENE GLYCOL POWDER 17 GM PACK PO SCH ×2 (09:33→21:52)
[2021-10-11] MEDS: MENTHOL/ZINC OXIDE OINT 71 GM JAR TOP SCH ×2 (09:36→21:52)
[2021-10-11] MEDS: GRANISETRON 1 MG/1 ML VIAL IV SCH (09:37)
[2021-10-11] MEDS: ATORVASTATIN 20 MG TABLET PO SCH (21:50)
[2021-10-11] MEDS: ENOXAPARIN 40 MG/0.4 ML SYRINGE SUBCUT SCH (21:50)
[2021-10-12 06:33] LABS: Basophils % 0.8 % (0.0-0.8); Hematocrit 33.6 VOL% (42.0-52.0); Hemoglobin 10.9 GM/DL (14.0-18.0); Immature Granulocytes Absolute 0.05 #; Lymphocytes # 0.2 10*3/uL (1.4-4.0); Lymphocytes % 8.3 % (21.2-54.2); Mean Corpuscular HGB Conc 32.4 GM/DL (32-36); Mean Corpuscular Volume 80.2 FL (87-102); Mean Platelet Volume 9.4 FL (9.6-12.0); Monocytes # 0.4 10*3/uL (0.11-0.8); Monocytes % 13.8 % (1.7-12.7); Neutrophils % 75.1 % (38.7-73.9); Platelet Count 247 T/CUMM (130-400); Red Blood Count 4.19 MC/CUMM (3.8-5.5); Red Cell Distribution Width 18.8 % (9.3-17.3); White Blood Count 2.5 T/CUMM (4-12)
[2021-10-12 07:01] LABS: Hypochromia Slight; Lymphocytes 7 % (20-55); Microcytosis Slight; Platelet Estimate Adequate; Total Cells Counted 100
[2021-10-12 07:03] LABS: Albumin 2.4 G/DL (3.4-5.0); Bilirubin,Total 0.5 MG/DL (0.20-1.00); Calcium 8.5 MG/DL (8.5-10.1); Osmolality,Calculated 276.1 MOS/KG (273-304); Potassium 4.8 MMOL/L (3.5-5.1); Total Protein 6.6 G/DL (6.4-8.2)
[2021-10-12] MEDS: INSULIN LISPRO 100 UNIT/ML SUBCUT SCH ×4 (07:35→21:24)
[2021-10-12] MEDS: SUCRALFATE 1 GM/10 ML UDCUP PO SCH ×4 (07:36→21:24)
[2021-10-12] MEDS: GRANISETRON 1 MG/1 ML VIAL IV SCH (09:15)
[2021-10-12] MEDS: BACILLUS COAGULANS CAPLET PO SCH (09:16)
[2021-10-12] MEDS: DEXAMETHASONE 4 MG TABLET PO SCH ×2 (09:16→21:23)
[2021-10-12] MEDS: SIMETHICONE CHEW 125 MG TABLET PO SCH ×2 (09:16→21:23)
[2021-10-12] MEDS: DOCUSATE/SENNA 50-8.6 MG TABLET PO SCH ×2 (09:16→21:25)
[2021-10-12] MEDS: BACLOFEN 10 MG TABLET PO SCH ×3 (09:17→21:23)
[2021-10-12] MEDS: CLOTRIMAZOLE 10 MG TROCHE PO SCH ×4 (09:17→21:23)
[2021-10-12] MEDS: PANTOPRAZOLE 20 MG TABLET PO SCH ×2 (09:17→21:23)
[2021-10-12] MEDS: PROCHLORPERAZINE 10 MG TABLET PO SCH ×3 (09:17→21:23)
[2021-10-12] MEDS: CHOLECALCIFEROL 5,000 UNIT TABLET PO SCH ×2 (09:17→21:23)
[2021-10-12] MEDS: CYANOCOBALAMIN 500 MCG TABLET PO SCH ×2 (09:17→21:22)
[2021-10-12] MEDS: FERROUS SULFATE 325 MG TABLET PO SCH (09:17)
[2021-10-12] MEDS: MENTHOL/ZINC OXIDE OINT 71 GM JAR TOP SCH ×2 (09:18→21:24)
[2021-10-12] MEDS: POLYETHYLENE GLYCOL POWDER 17 GM PACK PO SCH ×2 (09:39→21:25)
[2021-10-12] MEDS: ATORVASTATIN 20 MG TABLET PO SCH (21:23)
[2021-10-12] MEDS: ENOXAPARIN 40 MG/0.4 ML SYRINGE SUBCUT SCH (21:24)
[2021-10-13] MEDS: SUCRALFATE 1 GM/10 ML UDCUP PO SCH ×4 (07:35→22:27)
[2021-10-13] MEDS: INSULIN LISPRO 100 UNIT/ML SUBCUT SCH ×3 (08:04→17:31)
[2021-10-13] MEDS: DEXAMETHASONE 4 MG TABLET PO SCH ×2 (09:17→22:28)
[2021-10-13] MEDS: CLOTRIMAZOLE 10 MG TROCHE PO SCH ×4 (09:17→22:28)
[2021-10-13] MEDS: PANTOPRAZOLE 20 MG TABLET PO SCH ×2 (09:17→22:28)
[2021-10-13] MEDS: DOCUSATE/SENNA 50-8.6 MG TABLET PO SCH (09:17)
[2021-10-13] MEDS: CHOLECALCIFEROL 5,000 UNIT TABLET PO SCH ×2 (09:17→21:30)
[2021-10-13] MEDS: BACILLUS COAGULANS CAPLET PO SCH (09:17)
[2021-10-13] MEDS: CYANOCOBALAMIN 500 MCG TABLET PO SCH ×2 (09:17→22:29)
[2021-10-13] MEDS: GRANISETRON 1 MG/1 ML VIAL IV SCH (09:18)
[2021-10-13] MEDS: PROCHLORPERAZINE 10 MG TABLET PO SCH ×3 (09:18→22:29)
[2021-10-13] MEDS: MENTHOL/ZINC OXIDE OINT 71 GM JAR TOP SCH ×2 (09:20→21:30)
[2021-10-13] MEDS: BACLOFEN 10 MG TABLET PO SCH ×3 (09:27→21:30)
[2021-10-13] MEDS: SIMETHICONE CHEW 125 MG TABLET PO SCH ×2 (10:02→22:28)
[2021-10-13] MEDS: POLYETHYLENE GLYCOL POWDER 17 GM PACK PO SCH (10:02)
[2021-10-13] MEDS: FLUCONAZOLE INJ 200 MG/100 ML PREMIX IV SCH (17:31)
[2021-10-13] MEDS: ENOXAPARIN 40 MG/0.4 ML SYRINGE SUBCUT SCH (21:30)
[2021-10-13] MEDS: ATORVASTATIN 20 MG TABLET PO SCH (22:28)
[2021-10-14] MEDS: INSULIN LISPRO 100 UNIT/ML SUBCUT SCH ×5 (00:46→21:37)
[2021-10-14] MEDS: DOCUSATE/SENNA 50-8.6 MG TABLET PO SCH ×3 (00:50→21:37)
[2021-10-14] MEDS: POLYETHYLENE GLYCOL POWDER 17 GM PACK PO SCH ×3 (00:50→21:37)
[2021-10-14 06:02] LABS: Basophils % 0.4 % (0.0-0.8); Hematocrit 30.7 VOL% (42.0-52.0); Immature Granulocytes % 0.7 %; Immature Granulocytes Absolute 0.02 #; Lymphocytes # 0.1 10*3/uL (1.4-4.0); Lymphocytes % 3.7 % (21.2-54.2); Mean Corpuscular HGB Conc 32.6 GM/DL (32-36); Mean Corpuscular Volume 79.9 FL (87-102); Mean Platelet Volume 9.6 FL (9.6-12.0); Monocytes # 0.3 10*3/uL (0.11-0.8); Monocytes % 10.8 % (1.7-12.7); Neutrophils % 84.4 % (38.7-73.9); Platelet Count 272 T/CUMM (130-400); Red Blood Count 3.84 MC/CUMM (3.8-5.5); Red Cell Distribution Width 18.8 % (9.3-17.3); White Blood Count 2.7 T/CUMM (4-12)
[2021-10-14 06:22] LABS: Albumin 2.5 G/DL (3.4-5.0); Bilirubin,Total 0.4 MG/DL (0.20-1.00); Calcium 8.9 MG/DL (8.5-10.1); Osmolality,Calculated 271.5 MOS/KG (273-304); Potassium 3.7 MMOL/L (3.5-5.1); Total Protein 6.4 G/DL (6.4-8.2)
[2021-10-14 06:29] LABS: Band Neutrophils 5 % (0-10); Hypochromia Slight; Lymphocytes 4 % (20-55); Microcytosis Slight; Total Cells Counted 100
[2021-10-14 06:30] LABS: Acanthocytes Few; Ovalocytes Few; Platelet Estimate Normal
[2021-10-14] MEDS: GRANISETRON 1 MG/1 ML VIAL IV SCH (09:28)
[2021-10-14] MEDS: SUCRALFATE 1 GM/10 ML UDCUP PO SCH ×4 (09:28→21:33)
[2021-10-14] MEDS: CLOTRIMAZOLE 10 MG TROCHE PO SCH ×4 (09:29→21:35)
[2021-10-14] MEDS: SIMETHICONE CHEW 125 MG TABLET PO SCH ×2 (09:29→21:34)
[2021-10-14] MEDS: BACLOFEN 10 MG TABLET PO SCH ×3 (09:30→21:33)
[2021-10-14] MEDS: BACILLUS COAGULANS CAPLET PO SCH (09:30)
[2021-10-14] MEDS: PROCHLORPERAZINE 10 MG TABLET PO SCH ×3 (09:30→21:35)
[2021-10-14] MEDS: FERROUS SULFATE 325 MG TABLET PO SCH (09:30)
[2021-10-14] MEDS: CHOLECALCIFEROL 5,000 UNIT TABLET PO SCH ×2 (09:30→21:34)
[2021-10-14] MEDS: PANTOPRAZOLE 20 MG TABLET PO SCH ×2 (09:30→21:36)
[2021-10-14] MEDS: CYANOCOBALAMIN 500 MCG TABLET PO SCH ×2 (09:30→21:36)
[2021-10-14] MEDS: DEXAMETHASONE 4 MG TABLET PO SCH ×2 (09:30→21:34)
[2021-10-14] MEDS: MENTHOL/ZINC OXIDE OINT 71 GM JAR TOP SCH ×2 (09:31→21:38)
[2021-10-14] MEDS: FLUCONAZOLE INJ 200 MG/100 ML PREMIX IV SCH (16:53)
[2021-10-14] MEDS: ENOXAPARIN 40 MG/0.4 ML SYRINGE SUBCUT SCH (21:33)
[2021-10-14] MEDS: ATORVASTATIN 20 MG TABLET PO SCH (21:36)
[2021-10-15 06:16] LABS: Basophils % 0.3 % (0.0-0.8); Hematocrit 29.9 VOL% (42.0-52.0); Hemoglobin 9.7 GM/DL (14.0-18.0); Immature Granulocytes % 0.9 %; Immature Granulocytes Absolute 0.03 #; Lymphocytes # 0.2 10*3/uL (1.4-4.0); Lymphocytes % 4.4 % (21.2-54.2); Mean Corpuscular HGB Conc 32.4 GM/DL (32-36); Mean Corpuscular Volume 80.2 FL (87-102); Mean Platelet Volume 9.4 FL (9.6-12.0); Monocytes # 0.4 10*3/uL (0.11-0.8); Monocytes % 11.1 % (1.7-12.7); Neutrophils % 83.3 % (38.7-73.9); Platelet Count 297 T/CUMM (130-400); Red Blood Count 3.73 MC/CUMM (3.8-5.5); White Blood Count 3.4 T/CUMM (4-12)
[2021-10-15 06:20] LABS: Albumin 2.3 G/DL (3.4-5.0); Bilirubin,Total 0.4 MG/DL (0.20-1.00); Calcium 8.4 MG/DL (8.5-10.1); Potassium 3.7 MMOL/L (3.5-5.1); Total Protein 6.3 G/DL (6.4-8.2)
[2021-10-15 07:16] LABS: Anisocytosis 1+; Band Neutrophils 19 % (0-10); Lymphocytes 7 % (20-55); Platelet Estimate Normal; Total Cells Counted 100
[2021-10-15 07:17] LABS: Burr Cells Few; Ovalocytes Few; Tear Drop Cells Few
[2021-10-15] MEDS: PROCHLORPERAZINE 10 MG TABLET PO SCH ×3 (10:02→21:14)
[2021-10-15] MEDS: BACILLUS COAGULANS CAPLET PO SCH (10:03)
[2021-10-15] MEDS: SUCRALFATE 1 GM/10 ML UDCUP PO SCH ×4 (10:03→21:13)
[2021-10-15] MEDS: BACLOFEN 10 MG TABLET PO SCH ×3 (10:03→21:14)
[2021-10-15] MEDS: SIMETHICONE CHEW 125 MG TABLET PO SCH ×2 (10:03→21:13)
[2021-10-15] MEDS: DEXAMETHASONE 4 MG TABLET PO SCH ×2 (10:04→21:15)
[2021-10-15] MEDS: CHOLECALCIFEROL 5,000 UNIT TABLET PO SCH ×2 (10:04→21:18)
[2021-10-15] MEDS: CLOTRIMAZOLE 10 MG TROCHE PO SCH ×4 (10:04→21:13)
[2021-10-15] MEDS: CYANOCOBALAMIN 500 MCG TABLET PO SCH ×2 (10:04→21:14)
[2021-10-15] MEDS: MENTHOL/ZINC OXIDE OINT 71 GM JAR TOP SCH ×2 (10:05→21:18)
[2021-10-15] MEDS: PANTOPRAZOLE 20 MG TABLET PO SCH ×2 (10:05→21:14)
[2021-10-15] MEDS: GRANISETRON 1 MG/1 ML VIAL IV SCH (10:05)
[2021-10-15] MEDS: INSULIN LISPRO 100 UNIT/ML SUBCUT SCH ×4 (10:54→21:16)
[2021-10-15] MEDS: POLYETHYLENE GLYCOL POWDER 17 GM PACK PO SCH ×2 (10:54→21:17)
[2021-10-15] MEDS: DOCUSATE/SENNA 50-8.6 MG TABLET PO SCH ×2 (10:55→21:17)
[2021-10-15] MEDS: FLUCONAZOLE INJ 200 MG/100 ML PREMIX IV SCH (15:27)
[2021-10-15] MEDS ORDERED: fentaNYL 12 MCG/HR PATCH TRANSDERM SCH (16:00)
[2021-10-15] MEDS: ENOXAPARIN 40 MG/0.4 ML SYRINGE SUBCUT SCH (21:13)
[2021-10-15] MEDS: ATORVASTATIN 20 MG TABLET PO SCH (21:17)
[2021-10-16 05:40] LABS: Hematocrit 30.7 VOL% (42.0-52.0); Hemoglobin 9.8 GM/DL (14.0-18.0); Immature Granulocytes % 1.3 %; Immature Granulocytes Absolute 0.04 #; Lymphocytes # 0.1 10*3/uL (1.4-4.0); Lymphocytes % 4.1 % (21.2-54.2); Mean Corpuscular HGB Conc 31.9 GM/DL (32-36); Mean Corpuscular Volume 80.4 FL (87-102); Mean Platelet Volume 9.5 FL (9.6-12.0); Monocytes # 0.3 10*3/uL (0.11-0.8); Neutrophils % 84.6 % (38.7-73.9); Platelet Count 314 T/CUMM (130-400); Red Blood Count 3.82 MC/CUMM (3.8-5.5); Red Cell Distribution Width 18.8 % (9.3-17.3); White Blood Count 3.2 T/CUMM (4-12)
[2021-10-16 06:04] LABS: Alanine Aminotransferase 19 U/L (16-61); Albumin 2.2 G/DL (3.4-5.0); Alkaline Phosphatase 73 U/L (45-117); Aspartate Amino Transferase 16 U/L (0-37); Bilirubin,Total < 0.39 MG/DL (0.20-1.00); Blood Urea Nitrogen 23 MG/DL (7-18); Calcium 8.6 MG/DL (8.5-10.1); Carbon Dioxide 21 MMOL/L (21-32); Chloride 105 MMOL/L (98-107); Glucose 137 MG/DL (74-106); Osmolality,Calculated 271.4 MOS/KG (273-304); Potassium 3.8 MMOL/L (3.5-5.1); Sodium 133 MMOL/L (136-145); Total Protein 6.1 G/DL (6.4-8.2)
[2021-10-16 06:41] LABS: Band Neutrophils 7 % (0-10); Lymphocytes 2 % (20-55); Platelet Estimate Normal; Total Cells Counted 100
[2021-10-16 06:42] LABS: Anisocytosis 1+; Burr Cells 1+; Ovalocytes Few
[2021-10-16] MEDS: INSULIN LISPRO 100 UNIT/ML SUBCUT SCH ×4 (08:40→21:38)
[2021-10-16] MEDS: GRANISETRON 1 MG/1 ML VIAL IV SCH (09:47)
[2021-10-16] MEDS: DEXAMETHASONE 4 MG TABLET PO SCH ×2 (09:47→21:35)
[2021-10-16] MEDS: CLOTRIMAZOLE 10 MG TROCHE PO SCH ×4 (09:47→21:34)
[2021-10-16] MEDS: PANTOPRAZOLE 20 MG TABLET PO SCH ×2 (09:48→21:34)
[2021-10-16] MEDS: BACLOFEN 10 MG TABLET PO SCH ×3 (09:48→21:37)
[2021-10-16] MEDS: CYANOCOBALAMIN 500 MCG TABLET PO SCH ×2 (09:48→21:36)
[2021-10-16] MEDS: PROCHLORPERAZINE 10 MG TABLET PO SCH ×3 (09:48→21:36)
[2021-10-16] MEDS: DOCUSATE/SENNA 50-8.6 MG TABLET PO SCH ×2 (09:48→21:39)
[2021-10-16] MEDS: CHOLECALCIFEROL 5,000 UNIT TABLET PO SCH ×2 (09:48→21:39)
[2021-10-16] MEDS: SIMETHICONE CHEW 125 MG TABLET PO SCH ×2 (09:48→21:34)
[2021-10-16] MEDS: SUCRALFATE 1 GM/10 ML UDCUP PO SCH ×4 (09:48→21:33)
[2021-10-16] MEDS: FERROUS SULFATE 325 MG TABLET PO SCH (09:49)
[2021-10-16] MEDS: BACILLUS COAGULANS CAPLET PO SCH (09:49)
[2021-10-16] MEDS: MENTHOL/ZINC OXIDE OINT 71 GM JAR TOP SCH ×2 (10:00→21:37)
[2021-10-16] MEDS: POLYETHYLENE GLYCOL POWDER 17 GM PACK PO SCH ×2 (10:16→21:38)
[2021-10-16] MEDS: FLUCONAZOLE INJ 200 MG/100 ML PREMIX IV SCH (15:05)
[2021-10-16] MEDS: ENOXAPARIN 40 MG/0.4 ML SYRINGE SUBCUT SCH (21:33)
[2021-10-16] MEDS: ATORVASTATIN 20 MG TABLET PO SCH (21:35)
[2021-10-17 05:44] LABS: Hematocrit 31.7 VOL% (42.0-52.0); Hemoglobin 10.1 GM/DL (14.0-18.0); Immature Granulocytes % 1.1 %; Immature Granulocytes Absolute 0.05 #; Lymphocytes # 0.2 10*3/uL (1.4-4.0); Lymphocytes % 3.8 % (21.2-54.2); Mean Corpuscular HGB Conc 31.9 GM/DL (32-36); Mean Corpuscular Volume 81.3 FL (87-102); Monocytes # 0.3 10*3/uL (0.11-0.8); Monocytes % 7.4 % (1.7-12.7); Neutrophils % 87.7 % (38.7-73.9); Platelet Count 335 T/CUMM (130-400); Red Cell Distribution Width 19.5 % (9.3-17.3); White Blood Count 4.4 T/CUMM (4-12)
[2021-10-17 06:08] LABS: Lymphocytes 2 % (20-55); Platelet Estimate Adequate; Total Cells Counted 100
[2021-10-17 06:09] LABS: Hypochromia Slight; Microcytosis Slight; Ovalocytes Slight
[2021-10-17 06:11] LABS: Alanine Aminotransferase 23 U/L (16-61); Albumin 2.4 G/DL (3.4-5.0); Alkaline Phosphatase 75 U/L (45-117); Aspartate Amino Transferase 16 U/L (0-37); Bilirubin,Total < 0.39 MG/DL (0.20-1.00); Blood Urea Nitrogen 25 MG/DL (7-18); Calcium 8.7 MG/DL (8.5-10.1); Carbon Dioxide 23 MMOL/L (21-32); Chloride 104 MMOL/L (98-107); Glucose 142 MG/DL (74-106); Osmolality,Calculated 271.4 MOS/KG (273-304); Potassium 4.2 MMOL/L (3.5-5.1); Sodium 133 MMOL/L (136-145); Total Protein 6.4 G/DL (6.4-8.2)
[2021-10-17] MEDS: INSULIN LISPRO 100 UNIT/ML SUBCUT SCH ×3 (08:23→16:21)
[2021-10-17] MEDS: SUCRALFATE 1 GM/10 ML UDCUP PO SCH ×3 (09:33→16:40)
[2021-10-17] MEDS: GRANISETRON 1 MG/1 ML VIAL IV SCH (09:33)
[2021-10-17] MEDS: BACILLUS COAGULANS CAPLET PO SCH (09:33)
[2021-10-17] MEDS: CLOTRIMAZOLE 10 MG TROCHE PO SCH ×4 (09:34→16:40)
[2021-10-17] MEDS: PANTOPRAZOLE 20 MG TABLET PO SCH (09:34)
[2021-10-17] MEDS: DOCUSATE/SENNA 50-8.6 MG TABLET PO SCH (09:34)
[2021-10-17] MEDS: CHOLECALCIFEROL 5,000 UNIT TABLET PO SCH (09:34)
[2021-10-17] MEDS: DEXAMETHASONE 4 MG TABLET PO SCH (09:34)
[2021-10-17] MEDS: CYANOCOBALAMIN 500 MCG TABLET PO SCH (09:34)
[2021-10-17] MEDS: BACLOFEN 10 MG TABLET PO SCH ×2 (09:34→14:53)
[2021-10-17] MEDS: SIMETHICONE CHEW 125 MG TABLET PO SCH (09:34)
[2021-10-17] MEDS: MENTHOL/ZINC OXIDE OINT 71 GM JAR TOP SCH (09:35)
[2021-10-17] MEDS: POLYETHYLENE GLYCOL POWDER 17 GM PACK PO SCH (09:41)
[2021-10-17] MEDS: PROCHLORPERAZINE 10 MG TABLET PO SCH ×2 (11:09→14:53)
[2021-10-17 17:35] VITALS: BP 124/63
[2021-10-18] MEDS ORDERED: FLUCONAZOLE 200 MG TABLET PO SCH (09:00)
[2021-10-20] MEDS ORDERED: fentaNYL 12 MCG/HR PATCH TRANSDERM SCH (09:00)
== END 2021-10-17 17:25 | disposition home health service (06) | DRG 542 ==
LOC: N.ED 11:08 → N.EDINP 16:49 → SUATTDRO 16:49 → N.TELES 20:41
PROVIDERS: ADMIT Internal Medicine; ATTEND Hospitalist